=== PATIENT | male | born 1970 | race Hispanic/Latino ===

== ENCOUNTER 2019-10-14 15:06 | Inpatient (IN) | payer OTHER, SELFPAY ==
[2019-10-14 15:52] LABS: #Basophils 0.1 thou/uL (0.0-0.2); #Eosinphils 0.4 thou/uL (0.0-0.7); #Lymphocytes 1.3 thou/uL (1.20-3.40); #Monocytes 0.4 thou/uL (0.11-0.59); #Neutrophils 7.5 thou/uL (1.40-6.50); %Basophils 1.4 % (0.0-1.0); %Eosinophils 3.9 % (0.0-10.0); %Lymphocytes 13.2 % (21.0-51.0); %Monocytes 4.1 % (0.0-10.0); %Neutrophils 77.5 % (42.0-75.0); Hemoglobin 8.1 g/dL (14.0-18.0); Mean Corpuscular HGB CONC 33.6 g/dL (32.0-36.0); Mean Corpuscular Hemoglobin 33.2 pg (27.0-31.0); Mean Corpuscular Volume 98.8 fL (78.0-98.0); Mean Platelet Volume 7.3 fL (7.4-10.4); Platelet Count 251 thou/uL (130-400); RBC Distribution Width 12.3 % (11.5-14.5); Red Blood Cell (RBC) Count 2.43 mill/uL (4.70-6.10); White Blood Cell (WBC) Count 9.6 thou/uL (4.8-10.8)
[2019-10-14] MEDS ORDERED: Morphine 4 MG/ML VIAL ONE (15:53)
[2019-10-14] MEDS ORDERED: Lidocaine Viscous Sol 2% 15 ml UD Cup ONE (15:53)
[2019-10-14] MEDS ORDERED: Ondansetron PF 4 MG/2 ML Vial ONE (15:53)
[2019-10-14] MEDS ORDERED: Milk Of Magnesia 30 ML UDCUP ONE (15:53)
[2019-10-14 16:11] LABS: ALT (SGPT) 79 U/L (8-55); AST (SGOT) 141 U/L (5-34); Albumin 3.6 g/dL (3.5-5.0); Alkaline Phosphatase 147 U/L (40-110); Anion Gap 24 mmol/L (10-20); BUN (Urea Nitrogen) 80 mg/dL (8.9-20.6); Bilirubin, Total 0.4 mg/dL (0.2-1.2); Calc. Creatinine Clearance 0 mL/min (70-130); Calcium 7.6 mg/dL (7.8-10.44); Carbon Dioxide 20 mmol/L (22-29); Chloride 100 mmol/L (98-107); Estimated GFR-MDRD 6; Globulin 3.2 g/dL (2.4-3.5); Glucose 138 mg/dL (70-105); Potassium 3.9 mmol/L (3.5-5.1); Protein, Total 6.8 g/dL (6.0-8.3); Sodium 140 mmol/L (136-145)
[2019-10-14] MEDS ORDERED: Lorazepam 2 MG/ML VIAL ONE (16:24)
[2019-10-14] MEDS ORDERED: Cefepime 2 GM VIAL ONE (16:24)
--- NOTE | 2019-10-14 16:26 | RAD ---
Chest one view HISTORY: Dyspnea. FINDINGS: No comparison. Cardiac silhouette is magnified by projection. Pulmonary vasculature upper l imits of normal. Prominent ill-defined groundglass parenchymal opacities project over the central aspect of the left l chester and throughout the right lung. They are not especially peripheral based on the frontal radiograph. Slight elevation right hemidiaphragm. No lobar consolidation or evidence of pneumothorax. Tiny metallic density projects over the left shoulder. long wall mining machine helper leads overlie the chest. IMPRESSION : Prominent patchy groundglass parenchymal bilateral infiltrates. Clinical correlation regarding other signs and symptoms of multifocal viral pneumonitis is required.
[2019-10-14] MEDS ORDERED: Albuterol 200 PUFF (6.7GM INHALER) ONE (16:27)
[2019-10-14 16:35] LABS: CKMB 4.8 ng/mL (0-6.6)
[2019-10-14] MEDS ORDERED: Aspirin Chewable 81 MG TAB ONE ×2 (17:04→18:46)
--- NOTE | 2019-10-14 17:17 | CT ---
CT chest noncontrast CT abdomen and pelvis noncontrast HISTORY: Dyspnea. COVID 19. Flank pain. FINDINGS: Moderate right and small left pleural effusions. There are prominent ill-defined patchy are as of groundglass parenchymal opacity throughout each lung. Predominantly central. No lobar consolidation or evidence of pneumothorax. Old fractures involve the lateral aspect of left ribs 4 and 9. Lack of contrast limits evaluation of the soft tissues. Nonspecific lymph nodes are scattered about t he mediastinum. Each renal collecting system, ureter, and urinary bladder are decompressed without stone evident. Sma ll area of dystrophic calcifications associated with the tented area of the urinary bladder dome, possibly related to a urachal remnant. No evidence of complication. Lack of contrast limits evaluation of the soft tissues. Solid organs are intact. Motion artifact obsc ures detail. Nonspecific lymph nodes are scattered about the retroperitoneum. No evidence of bowel obstruction or inflammation. There are degenerative changes throughout the lumbar spine. IMPRESSION : Extensive bilateral airspace disease. Appearance is somewhat consistent with COVID 19, although the c entral location of the infiltrates and a significant amount of bilateral pleural fluid are not typical. No CT evidence of urinary tract obstruction or calcification. Incidental chronic-type findings as detailed above.
[2019-10-14 19:08] LABS: Troponin I 0.069 ng/mL (< 0.028)
[2019-10-14] MEDS ORDERED: Bisacodyl 5 MG TAB PO PRN (19:58)
[2019-10-14] MEDS ORDERED: Acetaminophen 325 MG Suppository PR PRN (19:58)
[2019-10-14] MEDS ORDERED: Mag-Al 1200 mg/1200 mg/30 ML UDCUP PO PRN (19:58)
--- NOTE | 2019-10-14 19:58 | PDOC.HHP ---
Hospitalist HPI - History of Present Illness fever History of Present Illness: This is a 49 year old with PMH of gastritis, hypertension who presented to the ER with fever. When I interviewed patient, he stated that he felt fine and denied fevers, chills, shortness of breath or cough. Per nurse, patient had been having fevers, shortness of breath and dry cough for past 8 days. He also told the nurse that he was having shortness of breath worst with laying down and on exertion. He denied chest pain. The patient complained of a slight headache and nausea and proceeded to dry heave while in the room. He reports no abdominal pain, constipation or diarrhea. He reports no difficulty with urination. He states he has had no kidney problems to his knowledge. Patient reports history of hypertension and states he took medicine for it occasionally but is not sure which one. ED Course: WHen patient presented to the ER he had a blood pressure of 204/34, HR 114, RR 22, temp 98.7, oxygen saturation 98% on room air. CT chest/abdomen and pelvis showed bilateral infiltrates He was given 4 morphine, Gi cocktail, zofran, 2 gram cefepime, 2 mg ativan, levaquin, 30 cc bolus of IV fluids in ER, 1L normal saline and 324 mg aspirin. He was also tested for COVID 19 Hospitalist ROS - Review of Systems Constitutional: denies: fever, chills ENT: denies: ear pain, ear discharge Respiratory: reports: cough, shortness of breath Cardiovascular: reports: orthopnea. denies: chest pain, palpitations Gastrointestinal: reports: nausea. denies: vomiting, abdominal pain, diarrhea, constipation Genitourinary: denies: dysuria, frequency Hospitalist History - Past Medical History Other Medical History: Hypertension Gastritis - Past Surgical History Other Surgical History: None - Family History Other Family History: Unable to obtain - Social History Smoking Status: Unknown if ever smoked (Patient was unable to answer question) Alcohol: reports: Occassional - Exam General Appearance: NAD, awake alert Eye: PERRL, anicteric sclera ENT: normocephalic atraumatic, no oropharyngeal lesions Neck: supple, no JVD Heart: RRR, no murmur, no gallops, no rubs Respiratory - other findings: diminished breath sounds bilaterally Gastrointestinal: soft Gastrointestinal - other findings: abdomen distended slightly. Mild epigastric tenderness Extremities: no edema Hospitalist Results - Labs Result Diagrams: 10/14/19 15:33 10/14/19 15:33 Lab results: WBC 9.6 thou/uL (4.8-10.8) 10/14/19 15:33 Hgb 8.1 g/dL (14.0-18.0) L 10/14/19 15:33 Hct 24.0 % (42.0-52.0) L 10/14/19 15:33 MCV 98.8 fL (78.0-98.0) H 10/14/19 15:33 Plt Count 251 thou/uL (130-400) 10/14/19 15: Neutrophils % 77.5 % (42.0-75.0) H 10/14/19 15:33 Sodium 140 mmol/L (136-145) 10/14/19 15: Potassium 3.9 mmol/L (3.5-5.1) 10/14/19 15: Chloride 100 mmol/L (98-107) 10/14/19 15: Carbon Dioxide 20 mmol/L (22-29) L 10/14/19 15:33 BUN 80 mg/dL (8.9-20.6) H 10/14/19 15:33 Creatinine 9.53 mg/dL (0.7-1.3) H 10/14/19 15:33 Glucose 138 mg/dL (70-105) H 10/14/19 15:33 Lactic Acid 1.9 mmol/L (0.5-2.2) 10/14/19 15:33 Calcium 7.6 mg/dL (7.8-10.44) L 10/14/19 15:33 Total Bilirubin 0.4 mg/dL (0.2-1.2) 10/14/19 15:33 AST 141 U/L (5-34) H 10/14/19 15:33 ALT 79 U/L (8-55) H 10/14/19 15:33 Alkaline Phosphatase 147 U/L (40-110) H 10/14/19 15:33 CK-MB (CK-2) 4.8 ng/mL (0-6.6) 10/14/19 15:33 Troponin I 0.069 ng/mL (< 0.028) H 10/14/19 18:27 Serum Total Protein 6.8 g/dL (6.0-8.3) 10/14/19 15:33 Albumin 3.6 g/dL (3.5-5.0) 10/14/19 15:33 Lipase 21 U/L (8-78) 10/14/19 15:33 Hospitalist H&P A/P - Plan Plan: This is a 49 year old male with past medical history of hypertension, gastritis who presented to the ER with fever, shortness of breath and cough however was afebrile here and actually had significantly elevated blood pressure # Acute hypoxic respiratory failure likely secondary to heart failure vs pneumonia #Hypertensive emergency with pulmonary edema #Type II NSTEMI #Acute Kidney Injury - patient with BP > 200. He reports having HTN occasionally at home. Chest X ray showing bilateral infiltrates. CT chest showing bilateral pleural effusions. Will d/c fluids. Start lasix 80 mg IV q12 hour. Will check ECHO. Troponin elevated but downtrending - creatinine is up to 9, nephrology was consulted. Will obtain renal ultrasound. Insert antunez catheter - continue IV vanc and cefepime and levaquin for now for possible pneumonia. Blood cultures sent, sputum culture pending- - COVID 19 test pending #Transaminitis - AST 141, ALT 79, ALP 147. Possibly congestive hepatopathy - will trend tomorrow #Macrocytic anemia - HB 8, check B12/folate in am Dispo: admit to CCU Code status: full code for now, poor historian
[2019-10-14] MEDS ORDERED: Furosemide 40 MG/4 ML VIAL SLOW IVP SCH (20:00)
[2019-10-14] MEDS: Furosemide 100 MG/10 ML VIAL SLOW IVP SCH (20:28)
[2019-10-14] MEDS ORDERED: hydrALAZINE 20 MG/ML VIAL SLOW IVP PRN (20:31)
[2019-10-14] MEDS: Ondansetron PF 4 MG/2 ML Vial IVP PRN (20:34)
[2019-10-14] MEDS: Labetalol HCl 100 MG/20 ML VIAL SLOW IVP PRN (20:45)
[2019-10-14] MEDS: Famotidine/PF 20 mg/2ml Vial SLOW IVP SCH (20:49)
[2019-10-14] MEDS: Vancomycin 1 GM in Premix Bag 1 BAG IVPB SCH (20:49)
[2019-10-14 20:59] LABS: Bacteria/HPF Rare-Few HPF (None Seen); RBC/HPF 0-3 HPF (0-3); Squamous Epithelial 0-3 HPF (0-3); WBC/HPF 0-3 HPF (0-3)
[2019-10-14] MEDS ORDERED: Vancomycin 1 GM in Premix Bag 1 BAG IVPB SCH (21:00)
[2019-10-14 22:01] LABS: Troponin I 0.057 ng/mL (< 0.028)
[2019-10-15] MEDS: Ondansetron PF 4 MG/2 ML Vial IVP PRN (03:21)
[2019-10-15] MEDS ORDERED: Cefepime 2 GM in Sodium Chloride 0.9% 100 ML IVPB SCH (04:00)
[2019-10-15 05:06] LABS: Hemoglobin 7.2 g/dL (14.0-18.0); Mean Corpuscular HGB CONC 33.1 g/dL (32.0-36.0); Mean Corpuscular Volume 99.8 fL (78.0-98.0); Mean Platelet Volume 7.8 fL (7.4-10.4); Platelet Count 207 thou/uL (130-400); RBC Distribution Width 12.4 % (11.5-14.5); Red Blood Cell (RBC) Count 2.17 mill/uL (4.70-6.10); White Blood Cell (WBC) Count 10.5 thou/uL (4.8-10.8)
[2019-10-15 05:13] LABS: ALT (SGPT) 82 U/L (8-55); AST (SGOT) 112 U/L (5-34); Albumin 3.3 g/dL (3.5-5.0); Alkaline Phosphatase 118 U/L (40-110); Anion Gap 24 mmol/L (10-20); BUN (Urea Nitrogen) 82 mg/dL (8.9-20.6); Bilirubin, Total 0.2 mg/dL (0.2-1.2); Calc. Creatinine Clearance 7 mL/min (70-130); Carbon Dioxide 16 mmol/L (22-29); Chloride 104 mmol/L (98-107); Estimated GFR-MDRD 6; Globulin 2.9 g/dL (2.4-3.5); Glucose 104 mg/dL (70-105); Potassium 4.5 mmol/L (3.5-5.1); Protein, Total 6.2 g/dL (6.0-8.3); Sodium 139 mmol/L (136-145)
[2019-10-15] MEDS: Furosemide 100 MG/10 ML VIAL SLOW IVP SCH (08:06)
[2019-10-15] MEDS: Vancomycin 1 GM in Premix Bag 1 BAG IVPB SCH (08:06)
[2019-10-15] MEDS: Famotidine/PF 20 mg/2ml Vial SLOW IVP SCH (08:06)
[2019-10-15] MEDS ORDERED: Lidocaine 1% (PF) 30 ML VIAL ONE (08:59)
[2019-10-15] MEDS ORDERED: Famotidine/PF 20 mg/2ml Vial SLOW IVP SCH (09:00)
[2019-10-15] MEDS ORDERED: Morphine 4 MG/ML VIAL ONE (09:24)
[2019-10-15] MEDS ORDERED: VANC IVPB PRN (09:50)
[2019-10-15] MEDS ORDERED: ANTIBIOTICS IVPB PRN (09:50)
--- NOTE | 2019-10-15 09:56 | CON ---
DATE OF CONSULTATION: HISTORY OF PRESENT ILLNESS: Barney Cm is a 49-year-old Greek gentleman, speaks no Tristanian. Extensive history is obtained with the help of an head scorer. Presents to the ER with several day history of shortness of breath, cough, and presumed fever. His coronavirus testing is present. He was in the ER last night October 13. His x-ray was consistent with pulmonary edema. CT showed airspace disease. PAST MEDICAL HISTORY: Pertinent for unknown medical problems. He denies any history of any diabetes or hypertension. PAST SURGICAL HISTORY: Apparently unknown. CARDIAC MEDICATION: Unknown. SOCIAL HISTORY: Alcohol, apparently he drinks two 40 ounces of beer a day. He has not had any alcohol for a period of time. REVIEW OF SYSTEMS: Otherwise unremarkable. PHYSICAL EXAMINATION: VITAL SIGNS: His saturations are 100% on nasal O2. Blood pressure is elevated at 160/90, pulse 80, respirations 18. CHEST: Decreased breath sounds without any wheezing or crackles. CARDIAC: Normal S1 and S2. No gallops. ABDOMEN: No masses. LABORATORY DATA: Creatinine 9, BUN is 82. BNP is 4458. Glucose 104. Hemoglobin and hematocrit are 7 and 21, and platelet count is normal. ASSESSMENT: 1. Fluid overload, congestive heart failure, and renal failure, etiology unclear. 2. Uncontrolled hypertension. 3. Greek-speaking patient. PLAN: Await results for the coronavirus. Nephrology was consulted. He is to undergo emergency dialysis. Echo is being ordered. He is already on broad-spectrum antibiotics. At this stage, continue supportive care and PT. We will follow in the ICU. Consultation note 70 minutes, 50% direct patient care. Job ID: [id number]
[2019-10-15] MEDS ORDERED: Vancomycin 1 GM in Premix Bag 1 BAG IVPB SCH (10:00)
[2019-10-15] MEDS ORDERED: Vancomycin HCl 750 MG in Sodium Chloride 0.9% 250 ML 250 ML IVPB SCH (10:00)
[2019-10-15] MEDS ORDERED: Vancomycin HCl 250 MG in Sodium Chloride 0.9% 100 ML IVPB SCH (10:00)
[2019-10-15] MEDS ORDERED: Vancomycin Sliding Scale 1 EACH FS ONE (10:00)
[2019-10-15] MEDS ORDERED: Prenatal Vitamin 1 TAB PO SCH (10:00)
[2019-10-15] MEDS ORDERED: Vancomycin HCl 500 MG in Sodium Chloride 0.9% 100 ML IVPB SCH (10:00)
[2019-10-15] MEDS ORDERED: HOLD VANCOMYCIN FOR LEVEL >20 FS SCH (10:00)
[2019-10-15 10:28] LABS: SARS-CoV-2 MS2 Positive; SARS-CoV-2 N Gene Negative; SARS-CoV-2 S Gene Negative; SARS-CoV-2 orf1ab Negative
--- NOTE | 2019-10-15 10:47 | CON ---
DATE OF CONSULTATION: HISTORY OF PRESENT ILLNESS: Mr. Cm is a 49-year-old male, non-Greenlandic speaking, and who presented to the ER for an elevated blood pressure as well as with fever. The patient states that he is mildly short of breath. He also has a fever. During the initial evaluation, chest x-ray showed diffuse interstitial infiltrates suggestive of a diffuse pneumonia. At the same time, he was noted to have a severely elevated potassium. We are being consulted for management of this chronic renal failure ?. Due to the unimproved renal function in the last 24 hours, I have decided to initiate hemodialysis. Right femoral dialysis catheter has been placed by Dr. Adkins. This morning, he is feeling a little better. REVIEW OF SYSTEMS: Positive for fever and mild shortness of breath. No chest pain. No syncopal episode. Positive for cough. No gross hematuria. No dysuria. No urinary frequency. No nausea. No vomiting. No abdominal pain. PAST MEDICAL HISTORY: Denies any medical problems. He does admit history of gastritis. PAST SURGICAL HISTORY: No significant surgeries. SOCIAL HISTORY: The patient is , lives in [place] for the last 20 years. He has 4 children. He currently does not smoke. He takes two beers per day. No IV drug abuse. No blood transfusion. Currently, not working. ALLERGIES: UNKNOWN. TRAUMA: None. IMMUNIZATION: Up-to-date. HOSPITALIZATIONS: Please see past medical history. FAMILY HISTORY: No family history of ESRD. PHYSICAL EXAMINATION: VITAL SIGNS: Blood pressure is noted at 160/99, heart rate 87, respiratory rate 16, and O2 saturation 100%. GENERAL: Noted to be awake, alert, comfortable, not in overt distress. SKIN: Adequate turgor. HEENT: He has a pale conjunctivae. Anicteric sclerae. NECK: No neck mass. No carotid bruits. No JVD. CHEST: No deformities. LUNGS: Decreased breath sounds. HEART: Normal sinus rhythm. No murmur. No gallops. No rubs. ABDOMEN: Globular, soft, and nontender. No masses. EXTREMITIES: No edema. No deformities. NEUROLOGIC: Awake and oriented to 3 spheres. Moving all extremities. No tremors. No asterixis. No ataxia. MEDICATIONS: Medications of October 15, 2019; 1. Cefepime 0.5 g IV daily. 2. Levaquin 500 mg every two days status post vancomycin. 3. P.R.N. hydralazine and labetalol. LABORATORY DATA: Laboratories of October 14, 2019, chest x-ray shows prominent ground-glass parenchymal bilateral infiltrates. Pulmonary vasculature is upper normal. CT scan of the abdomen and pelvis without contrast shows diffuse pulmonary infiltrates. No evidence of renal obstruction. Laboratories of October 15, 2019, white count 10.5 and hemoglobin 7.2. Sodium 139, potassium 4.5, chloride 104, carbon dioxide 16, BUN 82, creatinine 9.42, GFR 6 mL/minute, calcium 7, AST 112, ALT 82, and albumin 3.3. ASSESSMENT AND PLAN: 1. Chronic renal failure/acute kidney injury - we will review urine sediment. It is possible this is may be chronic in nature due to the associated anemia. CT scan of the abdomen and pelvis did not show any obstruction. We will probably do a renal ultrasound once he is ruled out for COVID. 2. Hypertension. Continue current BP medications. 3. Anemia. P.R.N. blood transfusion. We have prepared this patient for dialysis. A right femoral dialysis catheter has also already been inserted. We will do a 2-hour hemodialysis with this patient. We will recheck basic metabolic, CBC, PTH, and phosphorus in a.m. Job ID: [id number]
[2019-10-15 11:23] LABS: HBSAg Index 0.16 S/CO (0-0.99); Hep B Core Total Ab Non-Reactive (NonReactive); Hep B Core Total Index 0.03 S/CO (0-0.79); Hep B Surf AB Non-Reactive (NonReactive); Hep B Surf Ag Non-Reactive S/CO (NonReactive); Hep C IgG Ab Non-Reactive (NonReactive); Hep C Index 0.06 S/CO (0-0.79)
--- NOTE | 2019-10-15 11:48 | PDOC.HOSPP ---
- Subjective Encounter Date: 10/15/19 Encounter Time: 11:00 Subjective: The patient is doing much better. He has no orthopnea, mild cough. No abdominal pain, nausea or vomiting. He has abundant output in his antunez catheter - Objective Vital Signs & Weight: Vital Signs (12 hours) Temp Pulse Ox 10/15/19 08:00 99 10/15/19 03:00 97.8 F 10/15/19 02:09 98 Weight Weight 119 lb 14.903 oz Most Recent Monitor Data Heart Rate from ECG 91 NIBP 181/114 NIBP BP-Mean 136 Respiration from ECG 16 SpO2 99 I&O: 10/14/19 10/15/19 10/16/19 06:59 06:59 06:59 Intake Total 300 Output Total 1575 Balance -1275 Result Diagrams: 10/15/19 04:09 10/15/19 04:09 Hospitalist ROS - Review of Systems Constitutional: denies: fever, chills - Medication Medications: Active Medications Generic Name Dose Route Start Last Admin Trade Name Freq PRN Reason Stop Dose Admin Hydralazine HCl 10 mg 10/14/19 20:31 10/14/19 23:16 Apresoline SLOW IVP 10 mg Q1H PRN Administration SBP > 180 Labetalol HCl 10 mg 10/14/19 20:31 10/14/19 20:45 Normodyne SLOW IVP 10 mg Q4H PRN Administration SBP Greater Than 180 Ondansetron HCl 4 mg 10/14/19 19:58 10/15/19 03:21 Zofran IVP 4 mg Q6H PRN Administration Nausea/Vomiting - Exam General Appearance: NAD, awake alert Eye: PERRL, anicteric sclera ENT: normocephalic atraumatic, no oropharyngeal lesions Neck: no JVD Heart: RRR, no murmur, no gallops, no rubs Respiratory: CTAB, no wheezes, no ronchi Respiratory - other findings: left sided crackles Gastrointestinal: soft, non-tender, non-distended Extremities: no cyanosis, no clubbing, no edema Hosp A/P - Plan This is a 49 year old male with past medical history of hypertension, gastritis who presented to the ER with fever, shortness of breath and cough however was afebrile here and actually had significantly elevated blood pressure # Acute hypoxic respiratory failure likely secondary to heart failure vs pneumonia #Hypertensive emergency with pulmonary edema #Acute Kidney Injury - continue lasix 80 mg IV q12 hours. Nephrology was consulted, plan to undergo dialysis today since creatinine is still > 9. Renal US has been ordered - BP has improved to 180/116. Start oral antihypertensives after dialysis - continue IV vancomycin, cefepime, levaquin. Blood cultures negative. Can likely de-escalate pending how he does after dialysis - COVID 19 negative, will d/c precautions #Type II NSTEMI - troponins were elevated, but downtrending. ECHO is ordered. No chest pain #Transaminitis - improving, continue to trend - hepatitis panel negative #Macrocytic anemia - HB 7 - B12 normal, folate pending Dispo: pending improvement in creatinine, Blood pressure and respiratory failure DVT prophylaxis: SCD
[2019-10-15] MEDS: Labetalol HCl 100 MG/20 ML VIAL SLOW IVP PRN ×2 (11:52→16:06)
[2019-10-15] MEDS: Thiamine 100 MG TAB PO SCH (11:53)
--- NOTE | 2019-10-15 12:23 | OP ---
DATE OF PROCEDURE: 10/15/2019 PREOPERATIVE DIAGNOSIS: Acute renal failure. POSTOPERATIVE DIAGNOSIS: Acute renal failure. PROCEDURE PERFORMED: Placement of triple-lumen right femoral vein Trialysis catheter for hemodialysis. INDICATIONS FOR PROCEDURE: A 49-year-old man presented with acute renal failure. I was asked to place a temporary dialysis access for hemodialysis. DESCRIPTION OF PROCEDURE: Informed consent obtained from the patient. He was placed in supine position. The right groin was sterilely prepped and draped in the usual fashion. The right femoral artery was palpated at the groin. The skin medial to this was anesthetized with 1% lidocaine. The right femoral vein was cannulated with an 18-gauge introducer needle, returning dark venous blood. Guidewire was passed through the needle and advanced into the right femoral vein without resistance. Needle was withdrawn over the guidewire. A stab incision was made adjacent to the guidewire using an 11 scalpel. Dilator was passed over the guidewire, dilating the subcutaneous tissues. Dilator was removed. Triple-lumen Trialysis catheter was advanced over the guidewire and placed in the right femoral vein down to the hub. The guidewire was removed. Dark venous blood was aspirated from all 3 ports, which were individually flushed first with saline followed by heparin. The catheter was secured to right groin using 3-0 nylon suture at 2 points. Sterile dressings were applied. The patient tolerated this procedure without any apparent complication and remains hemodynamically stable following completion of procedure. Job ID: [id number]
[2019-10-15 12:34] LABS: Bilirubin Negative (Negative); Blood, Urine 2+ (Negative); Clarity Clear (Clear); Glucose, Urine (Dipstick) Normal (Negative); Leukocyte 75 Leu/uL (Negative); Nitrite Negative (Negative); Protein, Urine (Dipstick) 100 mg/dL (Neg-Trace); RBC/HPF 21-50 HPF (0-3); Squamous Epithelial None Seen HPF (0-3); Urobilinogen Normal mg/dL (Less than 2)
[2019-10-15 12:37] LABS: Bacteria/HPF 1+ HPF (None Seen)
--- NOTE | 2019-10-15 17:22 | ULT ---
RENAL ULTRASOUND: Date: 10-15-2019 Comparison: None History: Acute on chronic renal failure. Technique: Multiplanar grayscale sonographic imaging of the kidneys and urinary bladder obtained. FINDINGS: The right kidney is small and echogenic, measuring approximately 6.5 x 3.3 x 3.6 cm. Urinary bladder is decompressed and contains a Riley catheter. The left kidney is not well visualized secondary to increased echogenicity and patient body habitus. Left kidney measures approximately 6.3 x 3.3 x 3.6 cm. No hydronephrosis noted on either side. Incide ntal note is made of bilateral pleural effusions. IMPRESSION: 1. Small echogenic kidney suggesting renal medial disease. No hydronephrosis. 2. Bilateral pleural effusions. POS: CHARLEY
[2019-10-16] MEDS: Labetalol HCl 100 MG/20 ML VIAL SLOW IVP PRN (05:07)
[2019-10-16 05:23] LABS: #Basophils 0.1 thou/uL (0.0-0.2); #Eosinphils 0.9 thou/uL (0.0-0.7); #Monocytes 0.8 thou/uL (0.11-0.59); #Neutrophils 4.9 thou/uL (1.40-6.50); %Basophils 1.6 % (0.0-1.0); %Eosinophils 11.5 % (0.0-10.0); %Lymphocytes 12.6 % (21.0-51.0); %Monocytes 10.4 % (0.0-10.0); %Neutrophils 63.9 % (42.0-75.0); Hemoglobin 7.3 g/dL (14.0-18.0); Mean Corpuscular HGB CONC 33.9 g/dL (32.0-36.0); Mean Corpuscular Hemoglobin 33.7 pg (27.0-31.0); Mean Corpuscular Volume 99.3 fL (78.0-98.0); Mean Platelet Volume 7.7 fL (7.4-10.4); Platelet Count 217 thou/uL (130-400); RBC Distribution Width 12.3 % (11.5-14.5); Red Blood Cell (RBC) Count 2.18 mill/uL (4.70-6.10); White Blood Cell (WBC) Count 7.6 thou/uL (4.8-10.8)
[2019-10-16 05:44] LABS: Anion Gap 17 mmol/L (10-20); BUN (Urea Nitrogen) 54 mg/dL (8.9-20.6); Calc. Creatinine Clearance 9 mL/min (70-130); Calcium 8.2 mg/dL (7.8-10.44); Carbon Dioxide 25 mmol/L (22-29); Chloride 101 mmol/L (98-107); Estimated GFR-MDRD 8; Glucose 80 mg/dL (70-105); Phosphorus 5.4 mg/dL (2.3-4.7); Potassium 3.6 mmol/L (3.5-5.1); Sodium 139 mmol/L (136-145)
--- NOTE | 2019-10-16 08:51 | PRG ---
DATE OF SERVICE: 10/16/2019 SUBJECTIVE: This morning, the patient is awake, alert, and responsive. OBJECTIVE: VITAL SIGNS: Temperature 98, saturations 100%, blood pressure 180/110. CHEST: No wheezing or crackles. CARDIAC: Normal S1, S2. No gallops. ABDOMEN: No masses. IMPRESSION: Congestive heart failure, respiratory failure, renal failure. PLAN: Appears to be much improved. He has an access placed in for an emergency dialysis. He has acute renal failure. Input from Renal. We will follow while in the MICU. Job ID: [id number]
[2019-10-16] MEDS: Prenatal Vitamin 1 TAB PO SCH (09:07)
[2019-10-16] MEDS: Famotidine/PF 20 mg/2ml Vial SLOW IVP SCH (09:07)
[2019-10-16] MEDS: Thiamine 100 MG TAB PO SCH (09:08)
[2019-10-16] MEDS ORDERED: Tuberculin PPD 0.1 ML VIAL I-DERMAL SCH (09:45)
--- NOTE | 2019-10-16 10:22 | PRG ---
DATE OF SERVICE: 10/16/2019 SERVICE: Renal Medicine. SUBJECTIVE: Mr. Cm is a 49-year-old male, who was initially admitted for shortness of breath. At that time, there was a suspicion that he may have a pneumonia. However over time, the patient has been improving with initiation of dialysis. He was noted to be hyperkalemic and in volume overload at that time. He is tolerating the said dialysis. He is currently undergoing hemodialysis. No other complaints today. He denies any chest pain, shortness of breath, or any fever. OBJECTIVE: VITAL SIGNS: Blood pressure 183/110, heart rate 77, respiratory rate 10, O2 saturation 100% on room air, and temperature 98. GENERAL: Awake, alert, comfortable, not in overt distress. SKIN: Adequate turgor. HEENT: He has pale conjunctivae. Anicteric sclerae. NECK: No neck mass. No carotid bruits. No JVD. CHEST: No deformities. LUNGS: Decreased breath sounds. HEART: Normal sinus rhythm. No murmur. No gallops. No rubs. ABDOMEN: Globular, soft, and nontender. No masses. EXTREMITIES: No edema. No deformities. MEDICATIONS: Medications of October 16, 2019, were reviewed. LABORATORY DATA: Laboratories of October 16, 2019; white count 7.6, hemoglobin 7.3. Sodium 139, potassium 3.6, chloride 101, carbon dioxide 25, BUN 54, creatinine 7.5, and phosphorus 5.4. PTH 532. ASSESSMENT AND PLAN: 1. Chronic renal failure/acute kidney injury - renal ultrasound was done, which showed small echogenic kidneys suggesting there is chronicity of this renal dysfunction. I feel that this patient may have reached end-stage renal disease. Our plan is to continue maintenance hemodialysis. We will offer him with peritoneal dialysis if he will agree with it and if he will qualify. We will refer him for an option visit. Continue hemodialysis for the next several days and place him on 3 times a week. 2. Shortness of breath/congestive heart failure - clinically much improved. Please note, this patient ruled out for COVID. Repeat chest x-ray was done today on this patient. I have also ordered an JULIA and ANCA due to the proteinuria and hematuria to rule out vasculitis. Agree with current management. Job ID: [id number]
[2019-10-16] MEDS ORDERED: Carvedilol 6.25 MG TAB PO SCH (11:00)
[2019-10-16] MEDS: Calcium Carbonate 500 MG ChewTAB PO SCH ×2 (12:07→17:26)
--- NOTE | 2019-10-16 13:32 | RAD ---
CHEST 1 VIEW: HISTORY: congestive heart failure. COMPARISON: 10/14/2019. FINDINGS: Considerable improvement in the previously noted diffuse bilateral primarily perihilar parenchymal ch laurel, evidence for resolving or improving edema. No significant pleural effusion. Borderline cardio megaly. IMPRESSION: Marked improvement in the previously noted bilateral interstitial and alveolar primarily perihilar ed redd. Continued short-term followup. POS: C
[2019-10-16 13:40] VITALS: BMI 19.3
--- NOTE | 2019-10-16 14:48 | PDOC.HOSPP ---
- Subjective Encounter Date: 10/16/19 Encounter Time: 13:00 Subjective: The patient has no complains. No SOB, cough, fevers, chills. HE states he has no insurance. He has not seen PCP in years. He did report orthopnea on admission which has now resolved. - Objective Vital Signs & Weight: Vital Signs (12 hours) Temp Pulse Pulse Pulse BP BP BP 10/16/19 12:07 164/94 H 10/16/19 11:12 98.3 F 10/16/19 11:08 90 87 161/82 H 175/99 H 10/16/19 08:00 10/16/19 07:19 98.0 F 10/16/19 05:07 86 179/114 H 10/16/19 03:30 97.4 F L Pulse Ox Pulse Ox Pulse Ox 10/16/19 12:07 10/16/19 11:12 10/16/19 11:08 100 100 10/16/19 08:00 100 10/16/19 07:19 10/16/19 05:07 10/16/19 03:30 Weight Weight 112 lb 11.2 oz Most Recent Monitor Data Heart Rate from ECG 76 NIBP 149/90 NIBP BP-Mean 109 Respiration from ECG 19 SpO2 100 I&O: 10/15/19 10/16/19 10/17/19 06:59 06:59 06:59 Intake Total 300 240 Output Total 1575 1550 Balance -1275 -1310 Result Diagrams: 10/16/19 03:50 10/16/19 03:50 Hospitalist ROS - Review of Systems Constitutional: denies: fever, chills - Medication Medications: Active Medications Generic Name Dose Route Start Last Admin Trade Name Freq PRN Reason Stop Dose Admin Calcium Carbonate 500 mg 10/16/19 12:00 10/16/19 12:07 Tums PO 500 mg TID-WM LV Administration Famotidine 20 mg 10/16/19 09:00 10/16/19 09:07 Pepcid SLOW IVP 20 mg 0900 LV Administration Hydralazine HCl 10 mg 10/14/19 20:31 10/14/19 23:16 Apresoline SLOW IVP 10 mg Q1H PRN Administration SBP > 180 Labetalol HCl 10 mg 10/14/19 20:31 10/16/19 05:07 Normodyne SLOW IVP 10 mg Q4H PRN Administration SBP Greater Than 180 Ondansetron HCl 4 mg 10/14/19 19:58 10/15/19 03:21 Zofran IVP 4 mg Q6H PRN Administration Nausea/Vomiting Multivit/Folic Acid/Iron 1 tab 10/16/19 09:00 10/16/19 09:07 Vitamin PO 10/21/19 09:01 1 tab DAILY LV Administration Thiamine HCl 100 mg 10/15/19 10:00 10/16/19 09:08 Thiamine PO 10/17/19 10:01 100 mg 1000 LV Administration - Exam General Appearance: NAD, awake alert Eye: PERRL, anicteric sclera ENT: normocephalic atraumatic, no oropharyngeal lesions Neck: no JVD Heart: RRR, no murmur, no gallops, no rubs Respiratory: CTAB, no wheezes, no rales, no ronchi Gastrointestinal: soft, non-tender, non-distended, normal bowel sounds Extremities: no cyanosis, no clubbing, no edema Skin: normal turgor, no lesions, no rashes Hosp A/P - Plan Chest X ray 10/15: mild pulmonary edema This is a 49 year old male with past medical history of hypertension, gastritis who presented to the ER with fever, shortness of breath and cough however was afebrile here and actually had significantly elevated blood pressure # Acute hypoxic respiratory failure likely secondary to heart failure vs less likely pneumonia #Hypertensive emergency with pulmonary edema #Newly diagnosed ESRD - patient improved with lasix 80 mg IV q12 hours. Patient is getting dialysis M , W, F - he has no insurance, will need case management to find outpatient dialysis arrangement. Nephrology is thinking about setting him up with peritoneal dialysis - blood pressure is in the 160's, will start coreg 6.25 mg bid - discontinue cefepime and vancomycin. Continue levaquin for now. BLood cultures negative. COVId 19 negative #Type II NSTEMI - troponins were elevated, but downtrending. ECHO is ordered and pending #Transaminitis - improving, continue to trend - hepatitis panel negative #Macrocytic anemia - HB 7 - B12 normal, folate pending Dispo: needs outpatient dialysis set up DVT prophylaxis: SCD
[2019-10-16 15:50] LABS: ANA Symphony (Qualitative) Negative (Negative); ANA Symphony (Quantitative) 0.2 Ratio (< 0.7 Negative); dsDNA IgG Antibody 0.5 IU/mL (<10 Negative)
[2019-10-16] MEDS ORDERED: Cefepime 0.5 GM in Sodium Chloride 0.9% 100 ML IVPB SCH (16:00)
[2019-10-16] MEDS: Carvedilol 6.25 MG TAB PO SCH (17:25)
[2019-10-16] MEDS ORDERED: Calcium Carbonate 500 MG ChewTAB PO SCH (21:00)
[2019-10-17 04:17] LABS: #Eosinphils 1.8 thou/uL (0.0-0.7); #Lymphocytes 1.3 thou/uL (1.20-3.40); #Monocytes 0.9 thou/uL (0.11-0.59); #Neutrophils 5.1 thou/uL (1.40-6.50); %Basophils 0.5 % (0.0-1.0); %Lymphocytes 13.7 % (21.0-51.0); %Monocytes 10.3 % (0.0-10.0); %Neutrophils 55.5 % (42.0-75.0); Mean Corpuscular HGB CONC 33.5 g/dL (32.0-36.0); Mean Corpuscular Volume 98.7 fL (78.0-98.0); Mean Platelet Volume 7.1 fL (7.4-10.4); Platelet Count 216 thou/uL (130-400); RBC Distribution Width 12.4 % (11.5-14.5); Red Blood Cell (RBC) Count 2.42 mill/uL (4.70-6.10); White Blood Cell (WBC) Count 9.2 thou/uL (4.8-10.8)
[2019-10-17 04:40] LABS: Anion Gap 15 mmol/L (10-20); BUN (Urea Nitrogen) 22 mg/dL (8.9-20.6); Calc. Creatinine Clearance 14 mL/min (70-130); Carbon Dioxide 27 mmol/L (22-29); Chloride 99 mmol/L (98-107); Estimated GFR-MDRD 13; Glucose 97 mg/dL (70-105); Potassium 3.5 mmol/L (3.5-5.1); Sodium 137 mmol/L (136-145)
--- NOTE | 2019-10-17 08:00 | RAD ---
SINGLE VIEW OF THE CHEST: Comparison: 10-16-2019 History: CHF, shortness of breath. FINDINGS: Single view of the chest shows a normal sized cardiomediastinal silhouette. The heart has improved in size. There is no evidence of consolidation, mass, or pleural effusion. IMPRESSION: No evidence of acute cardiopulmonary disease. POS: ZACHA
[2019-10-17] MEDS ORDERED: EPOETIN ALFA-EPBX (ESRD) 4,000 UNIT/ML VIAL SC SCH (08:45)
--- NOTE | 2019-10-17 08:49 | PRG ---
DATE OF SERVICE: 10/17/2019 SERVICE: Renal Medicine. SUBJECTIVE: Mr. Cm is a 49-year-old male, who was initially admitted for acute respiratory failure. Initially, the feeling was that he may have had pneumonia. However, repeat chest x-ray suggests that the pulmonary lesions have improved with the dialysis alone. This could all be CHF. Please note, he had a cardiac echo, which showed an EF of 40% to 45%. Due to the worsening renal function, he was placed on dialysis. I have tried to communicate with the patient, who is non-Jamaican speaking about the need for long-term dialysis. We will be getting in touch with the daughter to explain it to the father. No other complaints with this patient today. He feels better. OBJECTIVE: VITAL SIGNS: Blood pressure 181/111, heart rate 73, temperature 96.9, O2 saturation 100%. GENERAL: The patient is noted to be awake, alert, comfortable, not in distress. SKIN: Adequate turgor. HEENT: Slightly pale conjunctivae. Anicteric sclerae. NECK: No neck mass. No carotid bruits. No JVD. CHEST: No deformities. LUNGS: Clear breath sounds. No wheezing. No crackles. HEART: Normal sinus rhythm. No murmur. No gallops. No rubs. ABDOMEN: Globular, soft, nontender. No masses. EXTREMITIES: No edema. No deformities. MEDICATIONS: Medications of October 17, 2019, reviewed. LABORATORY DATA: Laboratories of October 17, 2019; white count 9.2, hemoglobin 8. Sodium 137, potassium 3.5, chloride 99, carbon dioxide 27, BUN 22, creatinine 4.66, calcium 8.0. PTH is 532. ASSESSMENT AND PLAN: 1. Anemia. We will probably start the patient on Epogen as well as an iron supplementation. 2. Chronic renal failure-I suspect possibility of chronic glomerulonephritis. However, the kidneys are too small for him to undergo any renal biopsy. We are still awaiting the results of the JULIA and ANCA with this patient. Continue daily dialysis. Continue fluid removal. 3. Acute respiratory failure-consider underlying congestive heart failure. 4. Hypertension. Add losartan 25 mg tablet once a day. Agree with current management. Job ID: [id number]
--- NOTE | 2019-10-17 08:51 | PRG ---
DATE OF SERVICE: 10/17/2019 SUBJECTIVE: This morning, awake, alert, and responsive. He is in no respiratory distress. Chest x-ray was clear. His fluid overload symptoms resolved. OBJECTIVE: VITAL SIGNS: Temperature 99.8,, sats 100% on room air, and blood pressure 132\76. GENERAL: He is awake, alert, and responsive. CHEST: No wheezing or crackles. CARDIAC: Normal S1 and S2. No gallops. ABDOMEN: Soft. LABORATORY DATA: Creatinine 4.6. IMPRESSION: Acute on chronic renal failure, alcohol abuse, encephalopathy, respiratory much improved. PLAN: No need for any antibiotics at this stage. All cultures are negative. Home any time as per Nephrology. Job ID: [id number] [facility]
[2019-10-17] MEDS: Calcium Carbonate 500 MG ChewTAB PO SCH ×3 (09:00→16:49)
[2019-10-17] MEDS: Famotidine/PF 20 mg/2ml Vial SLOW IVP SCH (09:01)
[2019-10-17] MEDS: Carvedilol 6.25 MG TAB PO SCH ×2 (14:12→16:49)
[2019-10-17] MEDS: Calcitriol 0.25 MCG CAP PO SCH (14:53)
[2019-10-17] MEDS: Thiamine 100 MG TAB PO SCH (14:53)
[2019-10-17] MEDS: Losartan 25 MG TAB PO SCH (14:54)
[2019-10-17] MEDS: Prenatal Vitamin 1 TAB PO SCH (14:54)
--- NOTE | 2019-10-17 16:10 | PDOC.HOSPP ---
- Subjective Encounter Date: 10/17/19 Encounter Time: 11:30 Subjective: THe patient is doing well. He is getting dialysis today. No chest pain or shortness of breath or cough. Case management looking into dialysis set up for outpatient. He is undocumented. Nephrology will look into getting dialysis catheter placed. - Objective Vital Signs & Weight: Vital Signs (12 hours) Temp Pulse Ox 10/17/19 15:42 97.7 F 10/17/19 11:03 98.4 F 10/17/19 08:00 100 10/17/19 07:03 96.9 F L Weight Weight 111 lb 8.862 oz Most Recent Monitor Data Heart Rate from ECG 91 NIBP 133/85 NIBP BP-Mean 101 Respiration from ECG 21 SpO2 99 I&O: 10/16/19 10/17/19 10/18/19 06:59 06:59 06:59 Intake Total 240 340 Output Total 1550 750 Balance -1310 -410 Result Diagrams: 10/17/19 04:00 10/17/19 04:00 Hospitalist ROS - Review of Systems Constitutional: denies: fever, chills - Medication Medications: Active Medications Generic Name Dose Route Start Last Admin Trade Name Freq PRN Reason Stop Dose Admin Calcitriol 0.25 mcg 10/17/19 09:00 10/17/19 14:53 Rocaltrol PO 0.25 mcg DAILY LV Administration Calcium Carbonate 500 mg 10/16/19 12:00 10/17/19 14:30 Tums PO Not Given TID-WM LV Carvedilol 6.25 mg 10/16/19 17:00 10/17/19 14:12 Coreg PO Not Given BID-WM LV Epoetin Ned-epbx 7,500 unit 10/17/19 08:45 10/17/19 14:53 Retacrit SC 7,500 unit Q7D LV Administration Famotidine 20 mg 10/16/19 09:00 10/17/19 09:01 Pepcid SLOW IVP 20 mg 0900 LV Administration Hydralazine HCl 10 mg 10/14/19 20:31 10/14/19 23:16 Apresoline SLOW IVP 10 mg Q1H PRN Administration SBP > 180 Labetalol HCl 10 mg 10/14/19 20:31 10/16/19 05:07 Normodyne SLOW IVP 10 mg Q4H PRN Administration SBP Greater Than 180 Losartan Potassium 25 mg 10/17/19 09:00 10/17/19 14:54 Cozaar PO 25 mg DAILY LV Administration Ondansetron HCl 4 mg 10/14/19 19:58 10/15/19 03:21 Zofran IVP 4 mg Q6H PRN Administration Nausea/Vomiting Multivit/Folic Acid/Iron 1 tab 10/16/19 09:00 10/17/19 14:54 Vitamin PO 10/21/19 09:01 1 tab DAILY LV Administration Sodium Chloride 10 ml 10/16/19 21:00 10/17/19 09:03 Flush - Normal Saline IVF 10 ml Q12HR LV Administration Tuberculin PPD 0.1 ml 10/16/19 09:45 10/16/19 14:53 Tuberculin Ppd I-DERMAL 10/19/19 09:46 0.1 ml ONE LV Administration - Exam General Appearance: NAD, awake alert Eye: PERRL, anicteric sclera ENT: normocephalic atraumatic, no oropharyngeal lesions Neck: supple, no JVD Heart: RRR, no murmur, no gallops, no rubs Respiratory: CTAB, no wheezes, no rales, no ronchi Gastrointestinal: soft, non-tender, non-distended, normal bowel sounds Extremities: no cyanosis, no clubbing, no edema Skin: normal turgor, no lesions, no rashes Neurological: cranial nerve grossly intact, normal sensation to touch, no focal deficits, no new deficit Hosp A/P - Plan Chest X ray 10/15: mild pulmonary edema ECHO: EF 45-50%, moderate to severe TR This is a 49 year old male with past medical history of hypertension, gastritis who presented to the ER with fever, shortness of breath and cough however was afebrile here and actually had significantly elevated blood pressure # Acute hypoxic respiratory failure likely secondary to heart failure #Hypertensive emergency with pulmonary edema #Newly diagnosed ESRD #Systolic heart failure - patient improved with lasix 80 mg IV q12 hours. Patient is getting dialysis M , W, F - case management looking for outpatient dialysis option - per Dr. Coreas, will get surgery to place HD catheter for now - continue coreg 6.25 mg bid for hypertension - was on vanc, cefepime, levaquin empirically on admission. Vanc and cefepime discontinued 10/15, discontinued levaquin today low suspicion for pneumonia -COIVID 19 negative #Type II NSTEMI - troponins were elevated, but downtrending. ECHO showed no wall motion abnormalities #Transaminitis - improving, continue to trend. Repeat LFTS tomorrow - hepatitis panel negative #Macrocytic anemia - HB 7 - B12 high, folate normal Dispo: needs outpatient dialysis set up DVT prophylaxis: SCD
[2019-10-17] MEDS: Ferrous Sulfate 325 MG TAB PO SCH (16:49)
--- NOTE | 2019-10-17 19:23 | ULT ---
PREDIALYSIS ACCESS DUPLEX EXAMINATION: 10/17/19 INDICATION: End-stage renal disease for evaluation for dialysis access. FINDINGS: RIGHT UPPER EXTREMITY BRACHIAL ARTERY: 4.5 mm RADIAL ARTERY: 2.4 mm ULNAR ARTERY: 2.2 mm CEPHALIC VEIN Proximal Arm: 3.8 mm Mid Arm: 2.9 mm Distal Arm: 2.5 mm There is partial occlusive thrombus seen involving the right cephalic vein at the antecubital fossa. Measurements were not provided of the cephalic vein in the forearm and wrist. BASILIC VEIN Proximal Arm: 5.1 mm Mid Arm: 4.8 mm Distal Arm: 4.1 mm Antecubital Fossa: 3.6 mm Proximal Forearm: 1.6 mm Mid Forearm: 1.3 mm Distal Forearm: 1.9 mm LEFT UPPER EXTREMITY BRACHIAL ARTERY: 4.6 mm RADIAL ARTERY: 2.5 mm ULNAR ARTERY: 3.7 mm CEPHALIC VEIN Proximal Arm: 3.2 mm Mid Arm: 3.4 mm Distal Arm: 4.2 mm Antecubital Fossa: 4.4 mm Proximal Forearm: 2.5 mm Mid Forearm: 2.7 mm Distal Forearm: 2.5 mm BASILIC VEIN Proximal Arm: 4.7 mm Mid Arm: 4.5 mm Distal Arm: 5.8 mm Antecubital Fossa: 4.2 mm Proximal Forearm: 1.8 mm Mid Forearm: 1.1 mm Distal Forearm: 1.0 mm There is completely occlusive thrombus seen involving the left basilic vein at the left antecubital f paulina. The left basilic vein does branch at the antecubital fossa. One of the limbs is patent, more me dial to the occluded limb, within the left arm. IMPRESSION: 1. Venous thrombosis seen involving the right cephalic vein in the right antecubital fossa regio n. Proximal to this thrombus the right cephalic vein is patent. 2. 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 3. Predialysis access duplex measurements as above. POS: JESS
--- NOTE | 2019-10-18 01:02 | CON ---
DATE OF CONSULTATION: HISTORY OF PRESENT ILLNESS: A 49-year-old male, Frisian-speaking only from [facility]. He is here illegally. He was admitted to the hospital through the emergency room on 10/14/2019. Dr. Adkins, on 10/15/2019, placed a Trialysis catheter. When I entered the room, the patient has bilateral antecubital IVs, which I immediately removed. He is followed by Dr. Coreas. I have been asked to see him regarding establishing a dialysis access with hemodialysis catheter and a fistula. We will order ultrasound by mapping both arms. N.p.o. after midnight tonight. Plan placement of hemodialysis catheter cuff tunneled and [id number] arm fistula pinning and vein mapping and central line tomorrow to preserve his veins. The right groin catheter can be used for IV access. SOCIAL HISTORY: Tobacco; none. Alcohol; occasional beer. He is single, . MEDICATIONS: None. In the hospital, he is on carvedilol, hydralazine. He has been admitted to the Hospitalist Service and seen by Dr. Persaud and Dr. Coreas. PAST MEDICAL HISTORY: The patient does give a past medical history of gastritis, hypertension. He has been having headache, nausea, and dry heaves. He has a history of hypertension, but has not taken medications as he discontinued these on his own. He has had a CT scan of chest, abdomen, and pelvis noting bilateral infiltrates. PAST SURGICAL HISTORY: Noncontributory except for Trialysis catheter placed by Dr. Adkins. PHYSICAL EXAMINATION: VITAL SIGNS: 5 feet 4 inches, 111 pounds, 19 BMI, 97.7, 143/86. HEAD, EARS, EYES, NOSE, AND THROAT: Unremarkable. LUNGS: Clear to auscultation. CARDIAC: Regular rate and rhythm without murmur or gallop. ABDOMEN: Soft, nontender. EXTREMITIES: Palpable femoral, popliteal, radial pulses bilaterally. Antecubital IVs bilaterally removed. Right groin Trialysis catheter. LABORATORY DATA: Sodium 137, potassium 3.5, BUN 22, creatinine 4.66. GFR 13. White count 9 and hemoglobin 8. ASSESSMENT AND PLAN: End-stage renal disease, initiated dialysis this hospitalization. Bilateral ACs removed. Ultrasound vein mapping both arms stat. Plan n.p.o. after midnight tonight. Tentatively plan noon tomorrow hemodialysis access left arm fistula pinning, vein mapping, hemodialysis catheter. I had a long discussion with him regarding his illegal status. Once he is discharged, he should return to [facility]. The only other alternative is catastrophic dialysis periodically at this institution or others. Job ID: [id number]
[2019-10-18 05:05] LABS: Anion Gap 14 mmol/L (10-20); BUN (Urea Nitrogen) 13 mg/dL (8.9-20.6); Calc. Creatinine Clearance 16 mL/min (70-130); Calcium 8.1 mg/dL (7.8-10.44); Carbon Dioxide 28 mmol/L (22-29); Chloride 97 mmol/L (98-107); Estimated GFR-MDRD 16; Glucose 106 mg/dL (70-105); Potassium 3.7 mmol/L (3.5-5.1); Sodium 135 mmol/L (136-145)
[2019-10-18 05:06] LABS: ALT (SGPT) 43 U/L (8-55); AST (SGOT) 27 U/L (5-34); Albumin 3.1 g/dL (3.5-5.0); Alkaline Phosphatase 103 U/L (40-110); Bilirubin, Direct 0.1 mg/dL (0.1-0.3); Bilirubin, Total Less than 0.2 mg/dL (0.2-1.2); Protein, Total 6.2 g/dL (6.0-8.3)
[2019-10-18 05:49] LABS: Hemoglobin 8.6 g/dL (14.0-18.0); Mean Corpuscular HGB CONC 34.2 g/dL (32.0-36.0); Mean Corpuscular Hemoglobin 33.4 pg (27.0-31.0); Mean Corpuscular Volume 97.8 fL (78.0-98.0); Mean Platelet Volume 6.9 fL (7.4-10.4); Platelet Count 221 thou/uL (130-400); Red Blood Cell (RBC) Count 2.58 mill/uL (4.70-6.10)
[2019-10-18 05:57] LABS: Band 8 % (5-11); Eosinophils 23 % (0-10); Lymphocytes 24 % (21-51); MDiff Complete? YES; Monocytes 8 % (0-10); Neutrophil 37 % (42-75)
[2019-10-18] MEDS: Carvedilol 6.25 MG TAB PO SCH ×2 (06:20→19:51)
--- NOTE | 2019-10-18 08:58 | PRG ---
DATE OF SERVICE: 10/18/2019 SUBJECTIVE: Mr. Cm is a 49-year-old male, who was admitted for a volume overload and chronic renal failure. He underwent emergent hemodialysis. He is breathing better. His CHF is much resolved. Surgical consult has been done with Dr. Guerin for placement of AV fistula as well as cuffed hemodialysis catheter. The patient voices no new complaints today. The patient was also ruled out for COVID. OBJECTIVE: VITAL SIGNS: Blood pressure is 166/96, heart rate 71, respiratory rate 14, and O2 saturation 100%. GENERAL: The patient is awake, alert, comfortable, not in distress. SKIN: Adequate turgor. HEENT: He has a slightly pale conjunctivae. Anicteric sclerae. NECK: No neck mass. No carotid bruits. No JVD. CHEST: No deformities. LUNGS: Clear breath sounds. No wheezing. No crackles. HEART: Normal sinus rhythm. No murmur. No gallops. No rubs. ABDOMEN: Globular, soft, and nontender. No masses. EXTREMITIES: No edema. No deformities. LABORATORY DATA: Laboratories of October 18, 2019, white count 8 and hemoglobin 8.6. Sodium 135, potassium 3.7, chloride 97, carbon dioxide 28, BUN 13, creatinine 3.93, glucose 106, and calcium 8.1. JULIA screen was negative. ANCA is pending. ASSESSMENT AND PLAN: 1. Chronic renal failure/end-stage renal disease stable, continuing current hemodialysis regimen. We will do another hemodialysis treatment with this patient. My concern is that the patient may not qualify for outpatient hemodialysis. I have consulted Surgery for placement of arteriovenous fistula and cuffed hemodialysis catheter. 2. Congestive heart failure, clinically much improved with fluid removal with dialysis. 3. Anemia, currently on Epogen regimen as well as ferrous sulfate. 4. Secondary hyperparathyroidism/hyperphosphatemia - the patient started on calcitriol and Tums. Job ID: [id number]
[2019-10-18] MEDS ORDERED: Fentanyl 100 MCG/2 ML VIAL ONE (10:42)
[2019-10-18] MEDS ORDERED: Famotidine/PF 20 mg/2ml Vial ONE (10:43)
[2019-10-18] MEDS ORDERED: Bupivacaine PF 0.5% 30 ML VIAL ONE (10:49)
[2019-10-18] MEDS ORDERED: Sodium Chloride 0.9% 10 ML ONE ×2 (10:49→13:10)
[2019-10-18] MEDS ORDERED: Heparin 10,000 UNITS/1 ML VIAL ONE (10:49)
[2019-10-18] MEDS ORDERED: Lidocaine 2% w/Epinephrine 1:200K 20 ML VIAL ONE (10:49)
[2019-10-18] MEDS ORDERED: Heparin 5,000 UNITS/ML VIAL ONE (10:49)
--- NOTE | 2019-10-18 11:03 | PRG ---
DATE OF SERVICE: 10/18/2019 SUBJECTIVE: Rodrick Cm is a 49-year-old gentleman, awake, alert, and responsive. OBJECTIVE: VITAL SIGNS: Temperature 97, saturations are 90% on room air, blood pressure 166/95, respiratory rate 18. GENERAL: No distress. CHEST: No wheezing, crackles. CARDIAC: Normal S1, S2. No gallops. ASSESSMENT: Respiratory failure, congestive heart failure, renal failure, hypertension. PLAN: Access placement today, eventually home. Job ID: [id number]
[2019-10-18] MEDS ORDERED: Lidocaine 1% PF 5 ML VIAL ONE ×2 (11:05→12:49)
[2019-10-18] MEDS ORDERED: PROPOFOL 0 ML ONE (11:07)
[2019-10-18] MEDS ORDERED: Propofol 500 MG/50 ML VIAL ONE (11:07)
[2019-10-18] MEDS ORDERED: hydrALAZINE 20 MG/ML VIAL ONE (11:17)
[2019-10-18] MEDS ORDERED: PHENYLEPHRINE-NS 100 MCG/ML 10 ML SYRINGE ONE ×2 (12:49→13:10)
[2019-10-18] MEDS ORDERED: Metoclopramide HCl 10 MG/2 ML VIAL ONE (12:49)
[2019-10-18] MEDS ORDERED: Succinylcholine Chloride 20 MG/ML 10 ml SYRINGE FS ONE (12:49)
[2019-10-18] MEDS ORDERED: Glycopyrrolate 0.2 MG/ML 5 ML SYRINGE ONE (12:49)
[2019-10-18] MEDS ORDERED: Bupivacaine HCl 0.5%/Epinephrine 1:200,000/PF 30 ml Vial ONE (12:49)
[2019-10-18] MEDS ORDERED: Ondansetron PF 4 MG/2 ML Vial ONE (12:49)
[2019-10-18] MEDS ORDERED: EPHEDRINE 25 MG/5 ML SYRINGE ONE (12:49)
[2019-10-18] MEDS ORDERED: Rocuronium Bromide 10 MG/ML (10ML VIAL) ONE (12:49)
[2019-10-18] MEDS ORDERED: PROPOFOL 200 MG/20 ML VIAL ONE (12:49)
[2019-10-18] MEDS ORDERED: Protamine Sulfate 50 MG/5 ML VIAL ONE (14:17)
[2019-10-18] MEDS ORDERED: Promethazine HCl 25 MG/ML VIAL IM PRN (14:21)
[2019-10-18] MEDS ORDERED: Ondansetron HCl/PF 4 MG/2 ML Vial IVP PRN (14:21)
[2019-10-18] MEDS ORDERED: Promethazine HCl 25 MG/ML VIAL SLOW IVP PRN (14:21)
[2019-10-18] MEDS: Ferrous Sulfate 325 MG TAB PO SCH ×2 (14:43→19:51)
[2019-10-18] MEDS: Calcitriol 0.25 MCG CAP PO SCH (14:43)
[2019-10-18] MEDS: Famotidine/PF 20 mg/2ml Vial SLOW IVP SCH (14:43)
[2019-10-18] MEDS: Calcium Carbonate 500 MG ChewTAB PO SCH ×3 (14:43→19:51)
[2019-10-18] MEDS: Losartan 25 MG TAB PO SCH (14:43)
[2019-10-18] MEDS: Prenatal Vitamin 1 TAB PO SCH (14:44)
[2019-10-18] MEDS ORDERED: Acetaminophen 500 MG TAB PO PRN (14:54)
[2019-10-18] MEDS ORDERED: traMADol HCl 50 MG TAB PO PRN (14:54)
[2019-10-18 15:14] LABS: Cytoplasmic (C-ANCA) <1:20 titer (Neg:<1:20); Myeloperoxidase AutoAbs <9.0 U/mL (0.0-9.0); Perinuclear (P-ANCA) <1:20 titer (Neg:<1:20); Proteinase-3 AutoAbs Less than 3.5 U/mL (0.0-3.5)
--- NOTE | 2019-10-18 16:31 | PDOC.HOSPP ---
- Subjective Encounter Date: 10/18/19 Encounter Time: 16:29 Subjective: THe patient is doing well, getting dialysis currently. HE denies shortness of breath, chest pain, cough. He got his access today, patient states he is unable to move his right arm. Per surgery, patient's right arm was blocked on accident due to some miscommunication that occurred in pacu. Nephrology prefers dc tomorrow - Objective Vital Signs & Weight: Vital Signs (12 hours) Temp BP Pulse Ox 10/18/19 11:22 97.6 F 10/18/19 08:00 99 10/18/19 07:43 99 10/18/19 07:08 97.6 F 10/18/19 06:20 166/96 H Weight Weight 102 lb 8.239 oz Most Recent Monitor Data Heart Rate from ECG 69 NIBP 172/101 NIBP BP-Mean 124 Respiration from ECG 16 SpO2 98 I&O: 10/17/19 10/18/19 10/19/19 06:59 06:59 06:59 Intake Total 340 610 Output Total 750 450 Balance -410 160 Result Diagrams: 10/18/19 04:30 10/18/19 04:30 Hospitalist ROS - Review of Systems Constitutional: denies: fever, chills - Medication Medications: Active Medications Generic Name Dose Route Start Last Admin Trade Name Ritchieq PRN Reason Stop Dose Admin Calcitriol 0.25 mcg 10/17/19 09:00 10/18/19 14:43 Rocaltrol PO Not Given DAILY [facility] Calcium Carbonate 500 mg 10/16/19 12:00 10/18/19 14:44 Tums PO Not Given TID-WM LV Carvedilol 6.25 mg 10/16/19 17:00 10/18/19 06:20 Coreg PO 6.25 mg BID-WM LV Administration Epoetin Ned-epbx 7,500 unit 10/17/19 08:45 10/17/19 14:53 Retacrit SC 7,500 unit Q7D LV Administration Famotidine 20 mg 10/16/19 09:00 10/18/19 14:43 Pepcid SLOW IVP Not Given 0900 LV Ferrous Sulfate 325 mg 10/17/19 17:00 10/18/19 14:43 Feosol PO Not Given BID-WM LV Hydralazine HCl 10 mg 10/14/19 20:31 10/14/19 23:16 Apresoline SLOW IVP 10 mg Q1H PRN Administration SBP > 180 Labetalol HCl 10 mg 10/14/19 20:31 10/16/19 05:07 Normodyne SLOW IVP 10 mg Q4H PRN Administration SBP Greater Than 180 Losartan Potassium 25 mg 10/17/19 09:00 10/18/19 14:43 Cozaar PO Not Given DAILY LV Ondansetron HCl 4 mg 10/14/19 19:58 10/15/19 03:21 Zofran IVP 4 mg Q6H PRN Administration Nausea/Vomiting Multivit/Folic Acid/Iron 1 tab 10/16/19 09:00 10/18/19 14:44 Vitamin PO 10/21/19 09:01 Not Given DAILY LV Sodium Chloride 10 ml 10/16/19 21:00 10/18/19 09:00 Flush - Normal Saline IVF 10 ml Q12HR LV Administration Tuberculin PPD 0.1 ml 10/16/19 09:45 10/16/19 14:53 Tuberculin Ppd I-DERMAL 10/19/19 09:46 0.1 ml ONE LV Administration - Exam General Appearance: NAD, awake alert Eye: PERRL, anicteric sclera ENT: normocephalic atraumatic, no oropharyngeal lesions Neck: no JVD Heart: RRR, no murmur, no gallops, no rubs Respiratory: CTAB, no wheezes, no rales, no ronchi Gastrointestinal: soft, non-tender, non-distended Extremities: no cyanosis Extremities - other findings: patient unable to lift up right arm Skin: normal turgor, no lesions, no rashes Neurological: cranial nerve grossly intact, normal sensation to touch, no focal deficits, no new deficit Hosp A/P - Plan Chest X ray 10/15: mild pulmonary edema ECHO: EF 45-50%, moderate to severe TR This is a 49 year old male with past medical history of hypertension, gastritis who presented to the ER with fever, shortness of breath and cough however was afebrile here and actually had significantly elevated blood pressure # Acute hypoxic respiratory failure likely secondary to systolic heart failure #Newly diagnosed ESRD #Systolic heart failure - Patient is getting dialysis M, W, F. He had HD catheter placed today, has left arm AV fistula - right arm is currently numb from nerve block - case management consulted, unable to set up outpatient dialysis due to patient 's illegal status - plan to d/c tomorrow #Hypertensive emergency with pulmonary edema -improved with lasix - continue coreg 6.25 mg bid for hypertension - was on vanc, cefepime, levaquin empirically on admission. Vanc and cefepime discontinued 10/15, discontinued levaquin today low suspicion for pneumonia -COIVID 19 negative #Type II NSTEMI - troponins were elevated, but downtrending. ECHO showed no wall motion abnormalities #Transaminitis -resolved - hepatitis panel negative #Macrocytic anemia - HB 7 - B12 high, folate normal Dispo: needs outpatient dialysis set up DVT prophylaxis: SCD
--- NOTE | 2019-10-18 20:15 | RAD ---
Chest AP view INDICATION: Evaluate central line placement COMPARISON: October 17, 2019 chest radiograph FINDINGS: Lungs: Hyperinflated but clear Cardiac silhouette: Mildly enlarged but stable Pulmonary vasculature: Normal Pleural spaces: No pleural effusion or pneumothorax is demonstrated. Upper abdomen: No abnormality seen. Osseous structures: No acute osseous abnormality. Additional findings: There is a new right IJ dialysis catheter with the tip projecting in the region of the right atrium. There is a new left IJ central venous catheter with the tip projecting in the region of the right atrium. IMPRESSION: New central venous catheters as above. Stable mild cardiomegaly.
--- NOTE | 2019-10-18 20:56 | OP ---
DATE OF PROCEDURE: 10/18/2019 PREOPERATIVE DIAGNOSES: End-stage renal disease, thrombosed antecubital vein, right arm from IV access antecubital in the ER and present until I saw him yesterday. Thrombosed basilic vein, left arm for IV access antecubital area placed in the ER and present since admission until I saw him yesterday. PROCEDURES PERFORMED: Right internal jugular cuff tunneled hemodialysis catheter [employer] pre-curved. Left internal jugular central line, left wrist Michelle fistula calibrated to a 3.5 mm coronary dilator, clipping of collateral. ANESTHESIA: General (right arm was blocked, but left arm fistula performed). DESCRIPTION OF PROCEDURE: The patient was taken to the operating room, where under general anesthesia, neck and chest, left upper extremity prepared with ChloraPrep and draped in routine fashion. Local anesthetic was infiltrated in the skin and subcutaneous tissue about the operative site. 0.5% Marcaine with epinephrine 30 mL mixed with 1% Xylocaine with epinephrine 20 mL used mixture. Ultrasound guidance used to cannulate both the right and left internal jugular veins, trocar catheters and J-wires threaded, trocar catheter removed. Skin site was enlarged sharply. Left IJ triple-lumen catheter placed under Seldinger technique removing the J-wire, securing the catheter with 3-0 nylon suture and sterile dressing was applied. Each port aspirated blood flushed with saline solution. On the right side, a stab incision was made with the right chest. Using a tunneling device, pre-curved Angio[employer] cuffed tunneled hemodialysis catheter tunneled between 2 incisions, placed a fabric cuff in the skin exit site. Catheter was secured with 2 interrupted sutures of 3-0 nylon. Dilator smaller and medium placed over the J-wire into the internal jugular vein, removed. Dilator and Peel-Away Sheath placed over the J-wire into the superior vena cava and dilator and J-wire were removed. Catheter placed with a Peel-Away sheath and Peel-Away sheath removed. Platysma approximated with 4-0 Monocryl, skin with subdermal 4-0 Monocryl and Tenaha glue applied. Each port aspirated of blood, flushed with saline solution and hepatitis saline solution 1000 units of heparin per mL, indicating volume of the port. Sterile dressing was applied. Final fluoroscopic images revealed good line placement. Attention was turned to the left arm. The patient had an IV in both antecubital veins placed in the ER and left in place until I saw him in consultation yesterday (for 2-3 days). Antecubital vein on the right was thrombosed. Basilic vein on the left antecubital area thrombosed. Incision was made in the left wrist longitudinally between radial artery and cephalic vein, both of which were dissected free. The patient was given 6000 units of heparin intravenously. The cephalic vein dissected free and ligated on the hand side with 3-0 silk ties and spatulated over branch point and interrogated passing coronary dilators from 2 mm to 3.5 mm coronary dilator. It was flushed with heparinized saline solution. Branches clipped. Radial artery dissected free is small, but of good quality and clamped proximally and distally. Longitudinal arteriotomy was made sharply, elongated with Mcgill scissors and vein accordingly spatulated. End vein to side radial artery anastomosis created with continuous suture of 6-0 Prolene. After completing the anastomosis, releasing the clamps, noted good Doppler signal in the cephalic vein outflow of forearm. Good hemostasis noted. The patient given 25 mg of protamine by anesthesia. Subcutaneous tissues were approximated with 3-0 Monocryl, skin with subdermal 4-0 Monocryl and Tenaha glue applied. Job ID: [id number]
[2019-10-19 07:47] VITALS: TEMP 98.5
[2019-10-19] MEDS: Prenatal Vitamin 1 TAB PO SCH (08:35)
[2019-10-19] MEDS: Calcium Carbonate 500 MG ChewTAB PO SCH ×3 (08:35→16:41)
[2019-10-19] MEDS: Carvedilol 6.25 MG TAB PO SCH ×2 (08:35→16:41)
[2019-10-19] MEDS: Ferrous Sulfate 325 MG TAB PO SCH ×2 (08:35→16:41)
[2019-10-19] MEDS: Losartan 25 MG TAB PO SCH (08:35)
[2019-10-19] MEDS: Famotidine/PF 20 mg/2ml Vial SLOW IVP SCH (08:35)
[2019-10-19] MEDS: Calcitriol 0.25 MCG CAP PO SCH (08:35)
[2019-10-19] MEDS ORDERED: traMADol HCl 50 MG TAB PO PRN (09:34)
--- NOTE | 2019-10-19 10:37 | PRG ---
DATE OF SERVICE: 10/19/2019 SUBJECTIVE: This morning, awake, alert, responsive. Access placed and x-ray normal. OBJECTIVE: VITAL SIGNS: Temperature 98, pulse 97, blood pressure 160/96, respirations 18. CHEST: No wheezing or crackles. CARDIAC: Normal S1 and S2. No gallops. ABDOMEN: No mass. IMPRESSION: 1. Chronic renal failure. 2. Hypertension. PLAN: He appears to be stable. Pulmonary lafleur, he can be discharged home any time. Follow up with Renal. Job ID: [id number]
[2019-10-19 11:11] LABS: Anion Gap 20 mmol/L (10-20); BUN (Urea Nitrogen) 16 mg/dL (8.9-20.6); Calc. Creatinine Clearance 14 mL/min (70-130); Calcium 8.4 mg/dL (7.8-10.44); Carbon Dioxide 24 mmol/L (22-29); Chloride 98 mmol/L (98-107); Estimated GFR-MDRD 16; Glucose 82 mg/dL (70-105); Iron 34 ug/dL (65-175); Iron 36 ug/dL (65-175); Iron Binding Capacity, Total 323 mcg/dL (261-462); Potassium 4.5 mmol/L (3.5-5.1); Sodium 137 mmol/L (136-145)
[2019-10-19 16:41] VITALS: BP 166/96
--- NOTE | 2019-10-19 17:32 | DIS ---
DATE OF ADMISSION: 10/14/2019 DATE OF DISCHARGE: 10/19/2019 DISCHARGE DIAGNOSES: 1. Acute hypoxic respiratory failure secondary to hypertensive emergency with pulmonary edema and acute systolic heart failure. 2. Possible pneumonia. 3. Type 2 non-ST segment elevation myocardial infarction. 4. Acute kidney injury with new diagnosis of end-stage renal disease. 5. Anemia with iron deficiency. CONSULTATIONS: Rafael Aldana MD with Nephrology, Luis Persaud MD with Critical Care, and Micah Guerin MD with General Surgery. BRIEF HISTORY OF PRESENT ILLNESS: This is a 49-year-old male with a past medical history of gastritis and hypertension, who presented to the emergency room with shortness of breath, cough, and fevers for the past eight days. The patient also reported orthopnea on exertion and while lying down. Upon presentation to the emergency room, he had a blood pressure of > 200 systolic, heart rate of 114. His CT scan of his chest and abdomen showed bilateral infiltrates. He was tested for COVID-19 in the ER, which was negative. He was given cefepime, Levaquin, IV fluids, and aspirin and was admitted for further workup. HOSPITAL COURSE: 1. Acute hypoxic respiratory failure secondary to acute systolic heart failure versus pneumonia/ Hypertensive emergency The patient was initially started on IV vancomycin, cefepime, and Levaquin. The patient's creatinine was noted to be 9.5 on presentation. He was initially started on IV Lasix 80 mg q.12. However , his blood pressure remained uncontrolled with this and continued to have persistent pulmonary edema. Nephrology was consulted and started him on dialysis on 10/14. Thereafter, the patient reported resolution of his shortness of breath. His blood cultures were negative. Antibiotics were discontinued on the . The patient was weaned off oxygen down to room air. His troponins were slightly elevated at 0.077, but downtrended to 0.057. Patient denied chest pain. ECHO showed an EF of 40% to 45 %, with moderate mitral regurgitation. He was discharged on lasix 20 mg daily prn and coreg 6.25 mg bid for hypertension. 2. Acute kidney injury with newly diagnosed ESRD: the patient had a creatinine of 9.3 on presentation. He was started on dialysis while in the hospital by Dr. Coreas. The patient had a right tunneled catheter placed on the October 17 and left arm fistula on 10/17. By mistake the patient's right arm was blocked by Anesthesia during the procedure, so the patient did have some numbness of his right arm which is improving on the day of discharge. There are some absorbable sutures on the left arm, which should dissolve on its own. He should follow up with Dr. Guerin in 3 weeks. We tried to set him up with outpatient dialysis. However, the patient is an illegal immigrant so he does not qualify. Therefore, he was advised on discharge to follow up with his PCP with repeat labs in a week. He should come to the emergency room if he feels shortness of breath, inability to urinate, or if this potassium levels are really high for dialysis. 4. Transaminitis: The patient did have elevated LFTs on admission, which resolved on discharge. He was tested for hepatitis, which came back normal. 5. Anemia: The patient had a hemoglobin of 8.6. His iron panel showed a ferritin of 135, iron saturation of 11. His B12 and folate levels were normal. He was discharged on iron supplementation. 6. Partial occlusive thrombus in the right cephalic vein: The patient was noted to have IVs bilaterally in both wrists. These were removed on the after noting of a partial occlusive thrombus. The patient does report some mild pain in his right arm and numbness. He was advised to apply warm compresses. DISCHARGE PHYSICAL EXAMINATION: VITAL SIGNS: Temperature 98.5, O2 sat 96^% on room air, blood pressure is 137/74, and heart rate is 97. GENERAL: The patient is oriented x3. CVS: Regular rate and rhythm with no murmurs, rubs, or gallops. LUNGS: Clear to auscultation bilaterally. ABDOMEN: Positive bowel sounds. Soft, nontender, and nondistended. EXTREMITIES: No edema. PERTINENT LABORATORY DATA: CBC 10/17: White count 8.0, hemoglobin 8.6, hematocrit 25.2, and platelet count of 221. BMP 10/18: Shows a creatinine of 4.09. Rest of BMP is normal. Iron panel: Ferritin 135, iron sat 11, TIBC 323, and iron level 34. LFTs 10/17: AST 27, ALT 43, and alkaline phosphatase 103. Troponin I: 0.077, 0.069, and 0.057. Vitamin B12: 804. Folate: 14. PTH: 532. UA 10/14: Shows 100 protein, 2+ blood, 75 leukocyte esterase, 21 to 50 rbc's, and 4 to 6 white blood cells. JULIA panel: Negative. ANCA, anti-myeloperoxidase, atypical p-ANCA, and irzc-bdggia-yoztubkj DNA:are negative. COVID PCR: Not detected. Hepatitis B panel :nonreactive. IMAGING: Echo 10/15: EF is 40% to 45% with moderate MR, sclerotic aortic valve. There is [id number] TR. Chest x-ray 10/13: Shows prominent patchy bilateral infiltrates. CT chest, abdomen, and pelvis: Shows extensive bilateral airspace disease. Renal ultrasound on 10/14: Shows small echogenic kidney suggesting medical renal disease. No hydronephrosis. Chest x-ray 10/15: Shows marked improvement in the previously noted bilateral interstitial and alveolar primarily perihilar edema. Chest x-ray 10/16: Shows no acute disease. Chest x-ray 10/17: Shows stable mild cardiomegaly. Marking ultrasound 10/16: Shows partial occlusive thrombus involving the right cephalic vein at the antecubital fossa. DISCHARGE CONDITION: Stable. ACTIVITY: As tolerated. DIET: A renal diet. DISCHARGE MEDICATIONS: 1. Calcitriol 0.25 mcg p.o. daily. 2. Tums 500 mg p.o. t.i.d. 3. Coreg 6.25 mg p.o. b.i.d. 4. Ferrous sulfate 325 mg p.o. b.i.d. 5. Furosemide 20 mg p.o. daily p.r.n. 6. Losartan 25 mg p.o. daily. DISCHARGE INSTRUCTIONS: The patient is to follow up with his PCP in 1 week. He should follow up with Dr. Guerin in his office in 3 weeks. He should exercise and use his right arm without any restrictions. He should get repeat blood work done with his primary care doctor. Follow up with Dr. Coreas in 1 week. Job ID: [id number] [facility]
--- NOTE | 2019-10-20 13:00 | EKG ---
Test Reason : Blood Pressure : / mmHG Vent. Rate : 110 BPM Atrial Rate : 110 BPM P-R Int : 134 ms QRS Dur : 110 ms QT Int : 378 ms P-R-T Axes : 066 084 -14 degrees QTc Int : 511 ms Sinus tachycardia Possible Left atrial enlargement Right bundle branch block Abnormal ECG Confirmed by DREW FRANK DO ([id number]), department editor DARIEL TEE ([id number]) on 10/20/2019 1:00:00 PM Referred By: Confirmed By:DREW FRANK DO
--- NOTE | 2019-10-22 11:47 | PQF ---
Barney Cm, [facility] [id number] CLINICAL DOCUMENTATION CLARIFICATION FORM: POST DISCHARGE Addendum to original discharge summary date: ____ Late entry note date: __ DATE: 10/22/2019 ATTN: MARLINE RICCI Please exercise your independent, professional judgment in responding to the clarification form. Clinical indicators are provided on the bottom of this form for your review Please check appropriate box(s) to clarify if the following diagnosis has been ruled in or ruled out: Sepsis [ ] Ruled in diagnosis [ ] Continue to treat [ ] Resolved [ ] Ruled out diagnosis [ ] Cannot rule out diagnosis [X ] Other diagnosis Acute hypoxic respiratory failure [ ] Unable to determine For continuity of documentation, please document condition throughout progress notes and discharge summary. Thank You. CLINICAL INDICATORS - SIGNS / SYMPTOMS / LABS - Sepsis unspecified- ED record, 10/13, Fabio Yuan DO - Pulse: 114, RR: 22, Temp: 98.7-ED record, 10/13, Fabio Yuan DO - WBC: 9.6 on 10/13, 10.5 on 10/14, 7.6 on 10/15- Laboratory report - HPI: Fever- H&P, 10/13, KEIRY, MARLINE - Possible pneumonia-DS, 10/18, KEIRY, MARLINE RISK FACTORS - Acute kidney injury- H&P, 10/13, KEIRY, MARLINE - Acute hypoxic respiratory failure- H&P, 10/13, KEIRY, MARLINE TREATMENTS - Cefepime.IV- AUG, 10/13 - Levaquin.IV- AUG, 10/13 (This form is maintained as a part of the permanent medical record) [employer] Care Team Coordinator Scheduler [employer] [id number] [employer]. All Rights Reserved Jo [email or web address]
== END 2019-10-19 17:05 | disposition home or self-care (01) | DRG 264 ==
LOC: ERS 15:06 → CCU 18:02 → IMCU/EMU 10-15 13:22 → T4-A 10-18 16:58
PROVIDERS: ADMIT Internal Medicine; ATTEND Internal Medicine
PROC: 02HV33Z Insertion of Infusion Device into Superior Vena Cava, Percutaneous Approach (ICD-10-PCS; principal; 2019-10-15)
PROC: 5A1D70Z Performance of Urinary Filtration, Intermittent, Less than 6 Hours Per Day (ICD-10-PCS; 2019-10-15)
PROC: 8E0ZXY6 Isolation (ICD-10-PCS; 2019-10-15)
PROC: 0JH63XZ Insertion of Tunneled Vascular Access Device into Chest Subcutaneous Tissue and Fascia, Percutaneous Approach (ICD-10-PCS; 2019-10-18)
PROC: 02HV33Z Insertion of Infusion Device into Superior Vena Cava, Percutaneous Approach (ICD-10-PCS; 2019-10-18)
PROC: 031C0ZF Bypass Left Radial Artery to Lower Arm Vein, Open Approach (ICD-10-PCS; 2019-10-18)
DX: I13.2 Hypertensive heart and chronic kidney disease with heart failure and with stage 5 chronic kidney disease, or end stage renal disease (principal); I21.A1 Myocardial infarction type 2; J18.9 Pneumonia, unspecified organism; J96.01 Acute respiratory failure with hypoxia; N18.6 End stage renal disease; I50.21 Acute systolic (congestive) heart failure; N17.9 Acute kidney failure, unspecified; I16.1 Hypertensive emergency; Z20.828 Contact with and (suspected) exposure to other viral communicable diseases; G93.40 Encephalopathy, unspecified; N25.81 Secondary hyperparathyroidism of renal origin; T82.868A Thrombosis due to vascular prosthetic devices, implants and grafts, initial encounter; R74.0 Nonspecific elevation of levels of transaminase and lactic acid dehydrogenase [LDH]; F10.10 Alcohol abuse, uncomplicated; D63.1 Anemia in chronic kidney disease; E83.39 Other disorders of phosphorus metabolism; Y84.1 Kidney dialysis as the cause of abnormal reaction of the patient, or of later complication, without mention of misadventure at the time of the procedure; E78.5 Hyperlipidemia, unspecified
CPT/HCPCS: 36415; 36416; 71045; 71250; 74177; 76770; 80048; 80053; 80076; 81001; 81015; 82553; 82607; 82728; 82746; 83520; 83540; 83550; 83605; 83690; 83880; 83970; 84100; 84484; 85025; 85027; 86038; 86225; 86256; 86580; 86704; 86706; 86803; 87040; 87340; 87635; 90935; 93005; 93306; 93798; 93970; 96365; 96367; 96374; 96375; C1752; C1769; G0257; G0365; J0360; J0670; J0692; J1642; J1644; J1940; J1956; J2001; J2060; J2270; J2405; J2704; J2720; J2765; J3010; J3370; J3490; Q5105; S0020; S0028; U0003

== ENCOUNTER 2019-11-13 08:54 | Emergency (ER) | payer OTHER, SELFPAY ==
[2019-11-13 09:51] LABS: #Basophils 0.1 thou/uL (0.0-0.2); #Eosinphils 0.8 thou/uL (0.0-0.7); #Lymphocytes 1.6 thou/uL (1.20-3.40); #Monocytes 0.6 thou/uL (0.11-0.59); #Neutrophils 2.9 thou/uL (1.40-6.50); %Basophils 1.1 % (0.0-1.0); %Lymphocytes 27.3 % (21.0-51.0); %Monocytes 9.9 % (0.0-10.0); %Neutrophils 48.6 % (42.0-75.0); Mean Corpuscular HGB CONC 33.2 g/dL (32.0-36.0); Mean Corpuscular Hemoglobin 31.5 pg (27.0-31.0); Mean Corpuscular Volume 94.8 fL (78.0-98.0); Platelet Count 236 thou/uL (130-400); RBC Distribution Width 13.5 % (11.5-14.5); Red Blood Cell (RBC) Count 3.17 mill/uL (4.70-6.10)
[2019-11-13 10:10] LABS: ALT (SGPT) 7 U/L (8-55); AST (SGOT) 10 U/L (5-34); Albumin 4.5 g/dL (3.5-5.0); Alkaline Phosphatase 164 U/L (40-110); Anion Gap 25 mmol/L (10-20); Bilirubin, Total 0.5 mg/dL (0.2-1.2); Calc. Creatinine Clearance 0 mL/min (70-130); Calcium 8.8 mg/dL (7.8-10.44); Carbon Dioxide 16 mmol/L (22-29); Chloride 102 mmol/L (98-107); Estimated GFR-MDRD 5; Glucose 108 mg/dL (70-105); Potassium 4.1 mmol/L (3.5-5.1); Protein, Total 8.5 g/dL (6.0-8.3); Sodium 139 mmol/L (136-145)
[2019-11-13] MEDS ORDERED: Heparin 10,000 UNITS/ 10 ML VIAL ONE (10:11)
[2019-11-13 10:22] LABS: BUN (Urea Nitrogen) 150 mg/dL (8.9-20.6)
--- NOTE | 2019-11-13 13:56 | RAD ---
CHEST 1 VIEW: INDICATION: A 49-year-old male with elevated potassium and need for dialysis. COMPARISON: Prior exam dated 10/18/2019. FINDINGS: There is cardiomegaly and pulmonary vascular congestion. There is a right IJ dialysis catheter. Pre viously seen left IJ central venous catheter has been removed. No pneumothorax is evident. No acute osseous abnormality is evident. IMPRESSION: 1. Cardiomegaly with pulmonary vascular congestion is likely related to volume overload. 2. Right internal jugular dialysis catheter. 3. Interval removal of left internal jugular central venous catheter. POS: [facility]
== END 2019-11-13 19:15 | disposition home or self-care (01) ==
LOC: ERS 08:54
DX: I12.9 Hypertensive chronic kidney disease with stage 1 through stage 4 chronic kidney disease, or unspecified chronic kidney disease (principal); N18.9 Chronic kidney disease, unspecified; E87.5 Hyperkalemia; Z79.891 Long term (current) use of opiate analgesic; Z79.899 Other long term (current) drug therapy
CPT/HCPCS: 71045; 80053; 85025; 90935; 93005; 94760; G0257; J1644

== ENCOUNTER 2019-11-22 08:47 | Emergency (ER) | payer SELFPAY ==
[2019-11-22 09:25] LABS: #Basophils 0.1 thou/uL (0.0-0.2); #Eosinphils 1.1 thou/uL (0.0-0.7); #Lymphocytes 1.5 thou/uL (1.20-3.40); #Monocytes 0.8 thou/uL (0.11-0.59); #Neutrophils 5.1 thou/uL (1.40-6.50); %Basophils 0.8 % (0.0-1.0); %Eosinophils 12.7 % (0.0-10.0); %Lymphocytes 17.8 % (21.0-51.0); %Neutrophils 59.8 % (42.0-75.0); Hemoglobin 9.6 g/dL (14.0-18.0); Mean Corpuscular HGB CONC 33.9 g/dL (32.0-36.0); Mean Corpuscular Hemoglobin 31.3 pg (27.0-31.0); Mean Corpuscular Volume 92.5 fL (78.0-98.0); Mean Platelet Volume 7.3 fL (7.4-10.4); Platelet Count 295 thou/uL (130-400); RBC Distribution Width 13.6 % (11.5-14.5); Red Blood Cell (RBC) Count 3.06 mill/uL (4.70-6.10); White Blood Cell (WBC) Count 8.5 thou/uL (4.8-10.8)
[2019-11-22 09:57] LABS: Anion Gap 28 mmol/L (10-20); BUN (Urea Nitrogen) 127 mg/dL (8.9-20.6); Carbon Dioxide 15 mmol/L (22-29); Chloride 100 mmol/L (98-107); Potassium 4.6 mmol/L (3.5-5.1); Sodium 138 mmol/L (136-145)
[2019-11-22 09:58] LABS: ALT (SGPT) Less than 7 U/L (8-55); AST (SGOT) 8 U/L (5-34); Albumin 4.3 g/dL (3.5-5.0); Alkaline Phosphatase 112 U/L (40-110); Bilirubin, Total 0.5 mg/dL (0.2-1.2); CK (CPK) 107 U/L (30-200); Calc. Creatinine Clearance 0 mL/min (70-130); Calcium 7.8 mg/dL (7.8-10.44); Estimated GFR-MDRD 5; Globulin 3.7 g/dL (2.4-3.5); Glucose 125 mg/dL (70-105); Lipase 115 U/L (8-78)
[2019-11-22 10:01] LABS: CKMB 2.2 ng/mL (0-6.6)
--- NOTE | 2019-11-22 10:34 | RAD ---
CHEST 1 VIEW: HISTORY: Dyspnea. COMPARISON: 11/13/2019. FINDINGS: Right venous access catheter. Heart size is within normal limits. The lungs appear clear. IMPRESSION: No significant acute intrathoracic disease. POS: [facility]
[2019-11-22 12:04] LABS: HBSAg Index 0.15 S/CO (0-0.99); Hep B Surf Ag Non-Reactive S/CO (NonReactive)
[2019-11-22] MEDS ORDERED: Heparin 10,000 UNITS/ 10 ML VIAL ONE (12:48)
--- NOTE | 2019-11-23 15:19 | EKG ---
Test Reason : SOB Blood Pressure : / mmHG Vent. Rate : 087 BPM Atrial Rate : 087 BPM P-R Int : 142 ms QRS Dur : 124 ms QT Int : 422 ms P-R-T Axes : 066 064 020 degrees QTc Int : 507 ms Normal sinus rhythm Right bundle branch block Abnormal ECG Confirmed by PAULA CHEN, ALFRED ([id number]), legal editor DARIEL TEE ([id number]) on 11/23/2019 3:18:54 PM Referred By: Confirmed By:ALFRED MITCHELL MD
== END 2019-11-22 19:15 | disposition home or self-care (01) ==
LOC: ERS 08:47
DX: N19 Unspecified kidney failure (principal); I10 Essential (primary) hypertension; Z99.2 Dependence on renal dialysis; Z79.899 Other long term (current) drug therapy; Z79.891 Long term (current) use of opiate analgesic
CPT/HCPCS: 36415; 71045; 80053; 82550; 82553; 83690; 83880; 84484; 85025; 87340; 90935; 93005; G0257; J1644

== ENCOUNTER 2019-11-26 14:12 | Emergency (ER) | payer SELFPAY ==
[2019-11-26] MEDS ORDERED: traMADol HCl 50 MG TAB ONE (15:25)
[2019-11-26] MEDS ORDERED: diphenhydrAMINE 25 MG CAP ONE (15:25)
[2019-11-26 15:52] LABS: #Eosinphils 1.4 thou/uL (0.0-0.7); #Lymphocytes 1.2 thou/uL (1.20-3.40); #Monocytes 1.2 thou/uL (0.11-0.59); #Neutrophils 6.8 thou/uL (1.40-6.50); %Basophils 0.1 % (0.0-1.0); %Eosinophils 13.4 % (0.0-10.0); %Lymphocytes 11.1 % (21.0-51.0); %Monocytes 11.7 % (0.0-10.0); %Neutrophils 63.7 % (42.0-75.0); Hemoglobin 10.6 g/dL (14.0-18.0); Mean Corpuscular HGB CONC 33.6 g/dL (32.0-36.0); Mean Corpuscular Volume 92.2 fL (78.0-98.0); Platelet Count 258 thou/uL (130-400); RBC Distribution Width 13.2 % (11.5-14.5); Red Blood Cell (RBC) Count 3.41 mill/uL (4.70-6.10); White Blood Cell (WBC) Count 10.6 thou/uL (4.8-10.8)
[2019-11-26 16:06] LABS: ALT (SGPT) 10 U/L (8-55); AST (SGOT) 10 U/L (5-34); Albumin 4.5 g/dL (3.5-5.0); Alkaline Phosphatase 103 U/L (40-110); Anion Gap 27 mmol/L (10-20); BUN (Urea Nitrogen) 109 mg/dL (8.9-20.6); Bilirubin, Total 0.4 mg/dL (0.2-1.2); Calc. Creatinine Clearance 0 mL/min (70-130); Calcium 8.5 mg/dL (7.8-10.44); Carbon Dioxide 20 mmol/L (22-29); Chloride 95 mmol/L (98-107); Estimated GFR-MDRD 5; Globulin 3.9 g/dL (2.4-3.5); Glucose 91 mg/dL (70-105); Protein, Total 8.4 g/dL (6.0-8.3); Sodium 137 mmol/L (136-145)
== END 2019-11-26 17:00 | disposition home or self-care (01) ==
LOC: ERS 14:12
DX: K04.7 Periapical abscess without sinus (principal); I12.9 Hypertensive chronic kidney disease with stage 1 through stage 4 chronic kidney disease, or unspecified chronic kidney disease; N18.9 Chronic kidney disease, unspecified; L25.9 Unspecified contact dermatitis, unspecified cause; Z79.891 Long term (current) use of opiate analgesic; Z79.899 Other long term (current) drug therapy
CPT/HCPCS: 80053; 85025; 99283; Q0163

== ENCOUNTER 2019-12-07 14:13 | Emergency (ER) | payer SELFPAY ==
[~2019-12-07 14:13] MED LIST: Heparin 10,000 UNITS/ 10 ML VIAL ONE
[2019-12-07 14:51] LABS: #Basophils 0.1 thou/uL (0.0-0.2); #Eosinphils 3.8 thou/uL (0.0-0.7); #Lymphocytes 1.3 thou/uL (1.20-3.40); #Monocytes 1.2 thou/uL (0.11-0.59); #Neutrophils 9.8 thou/uL (1.40-6.50); %Basophils 0.3 % (0.0-1.0); %Eosinophils 23.7 % (0.0-10.0); %Lymphocytes 8.2 % (21.0-51.0); %Monocytes 7.4 % (0.0-10.0); %Neutrophils 60.4 % (42.0-75.0); Hemoglobin 9.3 g/dL (14.0-18.0); Mean Corpuscular HGB CONC 34.3 g/dL (32.0-36.0); Mean Corpuscular Hemoglobin 30.6 pg (27.0-31.0); Mean Corpuscular Volume 89.2 fL (78.0-98.0); Mean Platelet Volume 6.8 fL (7.4-10.4); Platelet Count 306 thou/uL (130-400); RBC Distribution Width 13.5 % (11.5-14.5); Red Blood Cell (RBC) Count 3.04 mill/uL (4.70-6.10); White Blood Cell (WBC) Count 16.2 thou/uL (4.8-10.8)
--- NOTE | 2019-12-07 14:57 | RAD ---
PORTABLE CHEST: DATE: 12/07/2019. PROVIDED CLINICAL HISTORY: Dizziness and cough. FINDINGS: Comparison 11/22/2019. Cardiac and mediastinal silhouette is unchanged in appearance. Right IJ dialy sis catheter is again seen in similar position. No focal consolidation, pleural fluid, or pneumothor ax apparent. IMPRESSION: No evidence for an acute cardiopulmonary process. POS: [facility]
[2019-12-07 15:12] LABS: ALT (SGPT) 13 U/L (8-55); AST (SGOT) 11 U/L (5-34); Albumin 4.4 g/dL (3.5-5.0); Alkaline Phosphatase 96 U/L (40-110); Anion Gap 29 mmol/L (10-20); Bilirubin, Total 0.5 mg/dL (0.2-1.2); Calc. Creatinine Clearance 0 mL/min (70-130); Carbon Dioxide 14 mmol/L (22-29); Chloride 91 mmol/L (98-107); Estimated GFR-MDRD 4; Globulin 3.6 g/dL (2.4-3.5); Glucose 154 mg/dL (70-105); Potassium 3.4 mmol/L (3.5-5.1); Sodium 131 mmol/L (136-145)
[2019-12-07 15:45] LABS: BUN (Urea Nitrogen) 163 mg/dL (8.9-20.6)
[2019-12-07 15:47] LABS: CKMB 3.3 ng/mL (0-6.6)
== END 2019-12-07 23:20 | disposition home or self-care (01) ==
LOC: ERS 14:13
DX: I12.0 Hypertensive chronic kidney disease with stage 5 chronic kidney disease or end stage renal disease (principal); N18.6 End stage renal disease; D63.1 Anemia in chronic kidney disease; E87.2 Acidosis; Z79.899 Other long term (current) drug therapy
CPT/HCPCS: 36415; 71045; 80053; 82553; 83605; 83880; 84484; 85025; 90935; 93005; G0257; J1644; U0002

== ENCOUNTER 2019-12-21 10:33 | Emergency (ER) | payer SELFPAY ==
--- NOTE | 2019-12-21 11:12 | RAD ---
EXAM: Single view of the chest HISTORY: Dyspnea COMPARISON: 12/07/2019 FINDINGS: Single view of the chest shows a normal sized cardiomediastinal silhouette. A dialysis cat heter is unchanged in position. There is no evidence of consolidation, mass, or pleural effusion. The bones are unremarkable IMPRESSION: No evidence of acute cardiopulmonary disease
[2019-12-21 11:53] LABS: #Basophils 0.1 thou/uL (0.0-0.2); #Eosinphils 1.1 thou/uL (0.0-0.7); #Lymphocytes 1.1 thou/uL (1.20-3.40); #Monocytes 0.5 thou/uL (0.11-0.59); %Basophils 1.2 % (0.0-1.0); %Eosinophils 23.6 % (0.0-10.0); %Lymphocytes 23.3 % (21.0-51.0); %Monocytes 10.5 % (0.0-10.0); %Neutrophils 41.4 % (42.0-75.0); Hemoglobin 8.5 g/dL (14.0-18.0); Mean Corpuscular HGB CONC 34.8 g/dL (32.0-36.0); Mean Corpuscular Hemoglobin 30.7 pg (27.0-31.0); Mean Corpuscular Volume 88.1 fL (78.0-98.0); Mean Platelet Volume 7.2 fL (7.4-10.4); Platelet Count 310 thou/uL (130-400); RBC Distribution Width 13.2 % (11.5-14.5); Red Blood Cell (RBC) Count 2.78 mill/uL (4.70-6.10); White Blood Cell (WBC) Count 4.7 thou/uL (4.8-10.8)
[2019-12-21] MEDS ORDERED: Heparin 10,000 UNITS/ 10 ML VIAL ONE (11:57)
[2019-12-21 12:15] LABS: ALT (SGPT) 9 U/L (8-55); AST (SGOT) 11 U/L (5-34); Albumin 4.2 g/dL (3.5-5.0); Alkaline Phosphatase 102 U/L (40-110); Anion Gap 31 mmol/L (10-20); Bilirubin, Total 0.6 mg/dL (0.2-1.2); Calc. Creatinine Clearance 0 mL/min (70-130); Calcium 6.8 mg/dL (7.8-10.44); Carbon Dioxide 14 mmol/L (22-29); Chloride 97 mmol/L (98-107); Estimated GFR-MDRD 3; Globulin 3.7 g/dL (2.4-3.5); Glucose 95 mg/dL (70-105); Potassium 3.8 mmol/L (3.5-5.1); Protein, Total 7.9 g/dL (6.0-8.3); Sodium 138 mmol/L (136-145)
[2019-12-21 12:31] LABS: BUN (Urea Nitrogen) 168 mg/dL (8.9-20.6)
[2019-12-21] MEDS ORDERED: Sodium Bicarb 50 MEQ/50 ML Abboject 8.4% SYRINGE ONE (13:40)
--- NOTE | 2019-12-21 15:54 | PRG ---
DATE OF SERVICE: 12/21/2019 SUBJECTIVE: Mr. Cm is a 49-year-old male with ESRD and was admitted due to progressive azotemia. He was found to be short of breath, but chest x-ray showed no overt volume overload. Due to the azotemia, the patient is undergoing hemodialysis. We are doing a 4-hour hemodialysis with the decreased blood flow of 350 mL/h. The patient is unable to obtain outpatient dialysis due to insurance issues. OBJECTIVE: VITAL SIGNS: Blood pressure 166/96. GENERAL: He was noted to be awake, comfortable, not in distress. SKIN: Adequate turgor. HEENT: Slightly pale conjunctivae. Anicteric sclerae. NECK: No neck mass. No carotid bruits. No JVD. CHEST: No deformities. LUNGS: Clear breath sounds. HEART: Normal sinus rhythm. No murmurs, gallops, or rubs. ABDOMEN: Globular, soft, nontender. No masses. EXTREMITIES: No edema. No deformities. Positive left upper extremity AV fistula. Positive for bruit. HOME MEDICATIONS: Reviewed. LABORATORY DATA: Laboratories of December 21, 2019; white count 4.7, hemoglobin 8.5. Sodium 138, potassium 3.8, chloride 97, carbon dioxide 14, BUN is 168, creatinine 14.9, glucose 95, calcium 6.8, and albumin 4.2. Chest x-ray; no CHF, no infiltrates. ASSESSMENT AND PLAN: 1. End-stage renal disease. Hemodialysis x4 hours. We will attempt 3 to 4 L of fluid removal as tolerated using a lower blood flow 350 mL/minute. So far, he is tolerating said dialysis. 2. Anemia. Continue iron supplementation. We will give Epogen 7500 units subcu q.week. 3. Mild hypocalcemia. Continue current calcitriol dosing. Job ID: [id number]
[2019-12-21] MEDS ORDERED: EPOETIN ALFA-EPBX (ESRD) 4,000 UNIT/ML VIAL SC SCH (18:00)
[2019-12-21] MEDS ORDERED: Calcium Carbonate 500 MG ChewTAB PO SCH (21:00)
== END 2019-12-21 21:50 | disposition home or self-care (01) ==
LOC: ERS 10:33
DX: I12.0 Hypertensive chronic kidney disease with stage 5 chronic kidney disease or end stage renal disease (principal); N18.6 End stage renal disease; E87.2 Acidosis; Z99.2 Dependence on renal dialysis; Z79.899 Other long term (current) drug therapy
CPT/HCPCS: 71045; 80053; 85025; 90935; 93005; 96374; G0257; J1644

== ENCOUNTER 2019-12-27 13:10 | Emergency (ER) | payer SELFPAY ==
[2019-12-27 14:23] LABS: #Basophils 0.1 thou/uL (0.0-0.2); #Eosinphils 1.1 thou/uL (0.0-0.7); #Lymphocytes 1.4 thou/uL (1.20-3.40); #Monocytes 0.9 thou/uL (0.11-0.59); %Basophils 1.2 % (0.0-1.0); %Lymphocytes 19.1 % (21.0-51.0); %Monocytes 11.6 % (0.0-10.0); %Neutrophils 53.2 % (42.0-75.0); Hemoglobin 7.7 g/dL (14.0-18.0); Mean Corpuscular Hemoglobin 30.7 pg (27.0-31.0); Mean Corpuscular Volume 90.5 fL (78.0-98.0); Mean Platelet Volume 6.9 fL (7.4-10.4); Platelet Count 315 thou/uL (130-400); RBC Distribution Width 13.5 % (11.5-14.5); White Blood Cell (WBC) Count 7.5 thou/uL (4.8-10.8)
[2019-12-27 14:41] LABS: ALT (SGPT) 13 U/L (8-55); AST (SGOT) 12 U/L (5-34); Albumin 4.1 g/dL (3.5-5.0); Alkaline Phosphatase 95 U/L (40-110); Anion Gap 26 mmol/L (10-20); BUN (Urea Nitrogen) 123 mg/dL (8.9-20.6); Bilirubin, Total 0.4 mg/dL (0.2-1.2); Calc. Creatinine Clearance 0 mL/min (70-130); Carbon Dioxide 17 mmol/L (22-29); Chloride 101 mmol/L (98-107); Estimated GFR-MDRD 4; Globulin 3.2 g/dL (2.4-3.5); Glucose 85 mg/dL (70-105); Magnesium 2.3 mg/dL (1.6-2.6); Potassium 4.7 mmol/L (3.5-5.1); Protein, Total 7.3 g/dL (6.0-8.3); Sodium 139 mmol/L (136-145)
[2019-12-27 19:11] LABS: HBSAg Index 0.23 S/CO (0-0.99); Hep B Surf Ag Non-Reactive S/CO (NonReactive)
== END 2019-12-28 00:05 | disposition home or self-care (01) ==
LOC: ERS 13:10
DX: I12.0 Hypertensive chronic kidney disease with stage 5 chronic kidney disease or end stage renal disease (principal); N18.6 End stage renal disease; E87.2 Acidosis; Z79.899 Other long term (current) drug therapy
CPT/HCPCS: 36415; 80053; 83735; 85025; 87340; 90935; 93005; 94760; G0257; J1644

== ENCOUNTER 2020-01-04 09:38 | Emergency (ER) | payer SELFPAY ==
[2020-01-04 10:14] LABS: #Eosinphils 0.9 thou/uL (0.0-0.7); #Lymphocytes 1.5 thou/uL (1.20-3.40); #Neutrophils 3.8 thou/uL (1.40-6.50); %Basophils 0.3 % (0.0-1.0); %Eosinophils 12.6 % (0.0-10.0); %Lymphocytes 20.9 % (21.0-51.0); %Monocytes 13.6 % (0.0-10.0); %Neutrophils 52.5 % (42.0-75.0); Hemoglobin 8.2 g/dL (14.0-18.0); Mean Corpuscular HGB CONC 32.9 g/dL (32.0-36.0); Mean Corpuscular Hemoglobin 29.5 pg (27.0-31.0); Mean Corpuscular Volume 89.5 fL (78.0-98.0); Mean Platelet Volume 6.8 fL (7.4-10.4); Platelet Count 283 thou/uL (130-400); RBC Distribution Width 13.5 % (11.5-14.5); Red Blood Cell (RBC) Count 2.77 mill/uL (4.70-6.10); White Blood Cell (WBC) Count 7.3 thou/uL (4.8-10.8)
[2020-01-04 10:44] LABS: ALT (SGPT) 8 U/L (8-55); AST (SGOT) 9 U/L (5-34); Albumin 4.1 g/dL (3.5-5.0); Alkaline Phosphatase 69 U/L (40-110); Anion Gap 29 mmol/L (10-20); BUN (Urea Nitrogen) 118 mg/dL (8.9-20.6); Bilirubin, Total 0.4 mg/dL (0.2-1.2); Calc. Creatinine Clearance 0 mL/min (70-130); Calcium 8.1 mg/dL (7.8-10.44); Carbon Dioxide 16 mmol/L (22-29); Chloride 96 mmol/L (98-107); Estimated GFR-MDRD 4; Globulin 3.6 g/dL (2.4-3.5); Glucose 106 mg/dL (70-105); Potassium 3.9 mmol/L (3.5-5.1); Protein, Total 7.7 g/dL (6.0-8.3); Sodium 137 mmol/L (136-145)
[2020-01-04] MEDS ORDERED: Heparin 10,000 UNITS/ 10 ML VIAL ONE (10:56)
[2020-01-04 11:02] LABS: CKMB 1.8 ng/mL (0-6.6)
[2020-01-04] MEDS ORDERED: Vancomycin 1 GM in Premix Bag 1 BAG IVPB SCH (14:45)
[2020-01-04] MEDS ORDERED: Gentamicin Sulfate 80 MG in Premix Bag 1 BAG IVPB SCH (14:45)
== END 2020-01-04 19:30 | disposition home or self-care (01) ==
LOC: ERS 09:38
DX: N17.9 Acute kidney failure, unspecified (principal); I12.9 Hypertensive chronic kidney disease with stage 1 through stage 4 chronic kidney disease, or unspecified chronic kidney disease; N18.9 Chronic kidney disease, unspecified; Z79.891 Long term (current) use of opiate analgesic; Z79.899 Other long term (current) drug therapy
CPT/HCPCS: 36415; 80053; 82553; 83880; 84484; 85025; 87070; 87205; 90935; 93005; G0257; J1580; J1644; J3370

== ENCOUNTER 2020-01-10 11:35 | Emergency (ER) | payer SELFPAY ==
[2020-01-10] MEDS ORDERED: Heparin 10,000 UNITS/ 10 ML VIAL ONE (11:36)
[2020-01-10 13:14] LABS: #Basophils 0.1 thou/uL (0.0-0.2); #Eosinphils 1.1 thou/uL (0.0-0.7); #Lymphocytes 1.3 thou/uL (1.20-3.40); #Monocytes 0.7 thou/uL (0.11-0.59); #Neutrophils 3.5 thou/uL (1.40-6.50); %Basophils 1.2 % (0.0-1.0); %Lymphocytes 19.7 % (21.0-51.0); %Monocytes 10.8 % (0.0-10.0); %Neutrophils 52.3 % (42.0-75.0); Hemoglobin 7.7 g/dL (14.0-18.0); Mean Corpuscular HGB CONC 32.7 g/dL (32.0-36.0); Mean Corpuscular Hemoglobin 29.7 pg (27.0-31.0); Mean Platelet Volume 6.4 fL (7.4-10.4); Platelet Count 348 thou/uL (130-400); RBC Distribution Width 13.4 % (11.5-14.5); White Blood Cell (WBC) Count 6.7 thou/uL (4.8-10.8)
[2020-01-10 13:38] LABS: Anion Gap 26 mmol/L (10-20); Calc. Creatinine Clearance 0 mL/min (70-130); Calcium 8.6 mg/dL (7.8-10.44); Carbon Dioxide 17 mmol/L (22-29); Chloride 97 mmol/L (98-107); Estimated GFR-MDRD 5; Glucose 109 mg/dL (70-105); Potassium 4.1 mmol/L (3.5-5.1); Sodium 136 mmol/L (136-145)
[2020-01-10 13:49] LABS: BUN (Urea Nitrogen) 113 mg/dL (8.9-20.6)
[2020-01-10] MEDS ORDERED: EPOETIN ALFA-EPBX (ESRD) 4,000 UNIT/ML VIAL SC SCH (14:45)
[2020-01-10] MEDS ORDERED: ceFAZolin 1 GM/D5W 1 GM in Premix Bag 1 BAG IVPB SCH (17:00)
--- NOTE | 2020-01-10 17:09 | PRG ---
DATE OF SERVICE: 01/10/2020 SUBJECTIVE: Mr. Cm is a 49-year-old male, who was advised by his PCP to go to the ER due to abnormal lab work. As per verbal report, the BUN and creatinine were elevated. He is currently undergoing hemodialysis. During the evaluation, he was noted to have erythema around the catheter site. A week ago , he came in. He was given empiric IV vancomycin and gentamicin. Blood culture at that time showed no negative growth. Our plan is to culture the exit site and empirically treat him again with a course of antibiotics. He will also be discharged with Cipro 250 mg p.o. b.i.d. If no improvement in one week, consider changing the catheter site to another location. The patient voices no new complaints. He denies any fever, chest pain or shortness of breath. OBJECTIVE: VITAL SIGNS: Blood pressure is 112/67, heart rate 80, respiratory rate 12. GENERAL: Awake, alert, comfortable, not in distress. SKIN: Adequate turgor. HEENT: Slightly pale conjunctivae. Anicteric sclerae. NECK: No neck mass. No carotid bruits. No JVD. CHEST: No deformities. LUNGS: Clear breath sounds, no wheezing. HEART: Normal sinus rhythm. No murmurs, gallops, or rubs. ABDOMEN: Globular, soft, nontender. No masses. EXTREMITIES: No edema, no deformities. Dialysis cather on right clavicle area. Mild erythema around the dialysis catheter site. LABORATORY DATA: Labs of January 10, 2020, were reviewed. ASSESSMENT AND PLAN: 1. Exit site infection-blood culture last week was negative. Culture of the exit site was done. Empiric Cipro 250 mg p.o. b.i.d. x10 days. In addition, we will give another dose of Ancef 2 g today. 2. Anemia, Epogen 7500 units subcu daily. 3. Endstage renal disease, hemodialysis x4 hours today. 4. The patient will come back p.r.n. basis at the ER. He is unable to obtain outpatient dialysis due to his financial status. 5. Agree with current management to discharge patient and come back p.r.n. Job ID: [id number] [facility]
== END 2020-01-10 18:51 | disposition home or self-care (01) ==
LOC: ERS 11:35
DX: I12.0 Hypertensive chronic kidney disease with stage 5 chronic kidney disease or end stage renal disease (principal); N18.6 End stage renal disease; Z79.2 Long term (current) use of antibiotics; Z99.2 Dependence on renal dialysis; Z79.899 Other long term (current) drug therapy
CPT/HCPCS: 36415; 80048; 85025; 87070; 87205; 90935; 99284; G0257; J0690; J1644

== ENCOUNTER 2020-02-01 09:26 | Inpatient (IN) | payer OTHER, SELFPAY ==
[2020-02-01 09:57] LABS: #Basophils 0.1 thou/uL (0.0-0.2); #Eosinphils 0.9 thou/uL (0.0-0.7); #Lymphocytes 1.7 thou/uL (1.20-3.40); #Monocytes 0.5 thou/uL (0.11-0.59); #Neutrophils 2.4 thou/uL (1.40-6.50); %Basophils 1.3 % (0.0-1.0); %Eosinophils 16.4 % (0.0-10.0); %Lymphocytes 30.9 % (21.0-51.0); %Monocytes 8.8 % (0.0-10.0); %Neutrophils 42.6 % (42.0-75.0); Mean Corpuscular HGB CONC 33.3 g/dL (32.0-36.0); Mean Corpuscular Hemoglobin 29.9 pg (27.0-31.0); Mean Corpuscular Volume 89.8 fL (78.0-98.0); Mean Platelet Volume 7.3 fL (7.4-10.4); Platelet Count 286 thou/uL (130-400); RBC Distribution Width 14.4 % (11.5-14.5); Red Blood Cell (RBC) Count 2.69 mill/uL (4.70-6.10); White Blood Cell (WBC) Count 5.7 thou/uL (4.8-10.8)
[2020-02-01] MEDS ORDERED: Heparin 10,000 UNITS/ 10 ML VIAL ONE (10:15)
[2020-02-01 10:19] LABS: ALT (SGPT) 7 U/L (8-55); AST (SGOT) 10 U/L (5-34); Albumin 4.2 g/dL (3.5-5.0); Alkaline Phosphatase 70 U/L (40-110); Anion Gap 26 mmol/L (10-20); BUN (Urea Nitrogen) 98 mg/dL (8.9-20.6); Bilirubin, Total 0.4 mg/dL (0.2-1.2); Calc. Creatinine Clearance 0 mL/min (70-130); Calcium 7.7 mg/dL (7.8-10.44); Carbon Dioxide 13 mmol/L (22-29); Chloride 105 mmol/L (98-107); Estimated GFR-MDRD 3; Globulin 3.2 g/dL (2.4-3.5); Glucose 130 mg/dL (70-105); Potassium 4.2 mmol/L (3.5-5.1); Protein, Total 7.4 g/dL (6.0-8.3); Sodium 140 mmol/L (136-145)
[2020-02-01 13:23] LABS: HBSAg Index 0.14 S/CO (0-0.99); Hep B Surf Ag Non-Reactive S/CO (NonReactive)
[2020-02-01] MEDS ORDERED: EPOETIN ALFA-EPBX (ESRD) 4,000 UNIT/ML VIAL SC SCH (15:00)
[2020-02-01] MEDS ORDERED: Gentamicin Sulfate 80 MG in Premix Bag 1 BAG IVPB SCH (16:30)
[2020-02-01] MEDS ORDERED: Vancomycin 1 GM in Premix Bag 1 BAG IVPB SCH (16:30)
[2020-02-01] MEDS ORDERED: Ondansetron PF 4 MG/2 ML Vial IVP PRN (17:52)
--- NOTE | 2020-02-01 18:01 | PDOC.HHP ---
Hospitalist HPI - History of Present Illness Generalized weakness History of Present Illness: Patient is a pleasant 49-year-old gentleman who was seen in the emergency room on February 01, 2020. He was hospitalized at this facility from January 13- of this year for infected dialysis catheter on the right side. The infected catheter was removed and he had a new catheter placed on the left side. He reports mild pain at the new catheter site. He reports generalized weakness that has been going on for a few days. Patient is not on routine hemodialysis due to insurance status. He denies any fever, cough, cold, chills or diarrhea. He denies any nausea or vomiting. He was referred to hospitalist service for admission because of concern that the new dialysis catheter may be infected. ED Course: BP: 159/93, Pulse: 79, Resp: 20 (Non-Labored), Temp: 97.8 (Oral), Pain: 6, O2 sat: 100 on (Room Air), Time: 02/01/2020 09:27. Hospitalist ROS - Review of Systems Constitutional: reports: weakness. denies: fever, chills, sweats, malaise Respiratory: denies: cough Cardiovascular: denies: chest pain Gastrointestinal: denies: nausea, vomiting Genitourinary: denies: dysuria, frequency Hospitalist History - Past Medical History Other Medical History: Past medical history: Hypertension gastritis end-stage renal disease on hemodialysis Surgical history: Dialysis catheter placement and removal on the right side, followed by dialysis catheter placement on the left side. Social history: Patient denies tobacco use, alcohol use or recreational drug use. Family history: Significant for diabetes mellitus. Allergies: No known drug allergies Current medications: Amlodipine 5 mg as needed, Coreg 6.25 mg 2 times a day, gabapentin 100 mg 3 times a day, Lasix 40 mg daily, ferrous sulfate 324 mg daily , zinc 50 mg daily, calcitriol 0.25 mcg daily, prednisone 40 mg daily and tramadol as needed. - Social History Alcohol: reports: Occassional - Exam General Appearance: awake alert Eye: anicteric sclera ENT: normocephalic atraumatic Neck: supple, no thyromegaly Heart: RRR Heart - other findings: Mild tenderness over L dialysis catheter site Respiratory: CTAB Gastrointestinal: soft, normal bowel sounds Skin: no rashes Musculoskeletal: no muscle wasting Psychiatric: normal affect, normal behavior Hospitalist Results - Labs Result Diagrams: 02/01/20 09:43 02/01/20 09:43 Lab results: WBC 5.7 thou/uL (4.8-10.8) 02/01/20 09:43 Hgb 8.0 g/dL (14.0-18.0) L 02/01/20 09:43 Hct 24.1 % (42.0-52.0) L 02/01/20 09:43 MCV 89.8 fL (78.0-98.0) 02/01/20 09:43 Plt Count 286 thou/uL (130-400) 02/01/20 09:43 Neutrophils % 42.6 % (42.0-75.0) 02/01/20 09:43 Sodium 140 mmol/L (136-145) 02/01/20 09:43 Potassium 4.2 mmol/L (3.5-5.1) 02/01/20 09:43 Chloride 105 mmol/L (98-107) 02/01/20 09:43 Carbon Dioxide 13 mmol/L (22-29) L 02/01/20 09:43 BUN 98 mg/dL (8.9-20.6) H 02/01/20 09:43 Creatinine 16.33 mg/dL (0.7-1.3) H 02/01/20 09:43 Glucose 130 mg/dL (70-105) H 02/01/20 09:43 Calcium 7.7 mg/dL (7.8-10.44) L 02/01/20 09:43 Total Bilirubin 0.4 mg/dL (0.2-1.2) 02/01/20 09:43 AST 10 U/L (5-34) 02/01/20 09:43 ALT 7 U/L (8-55) L 02/01/20 09:43 Alkaline Phosphatase 70 U/L (40-110) 02/01/20 09:43 Serum Total Protein 7.4 g/dL (6.0-8.3) 02/01/20 09:43 Albumin 4.2 g/dL (3.5-5.0) 02/01/20 09:43 Hospitalist H&P A/P - Plan Plan: Patient is a pleasant 49-year-old gentleman who was seen in the emergency room on February 01, 2020. His problem list includes: 1. Generalized weakness: Most likely secondary to noncompliance with dialysis regimen. He is being admitted to hospital for further management. He is to undergo dialysis today. There was some concern regarding infection of the new dialysis access. Patient to receive vancomycin with dialysis. We will also add cefepime. Blood cultures have been sent, will follow. 2. End-stage renal disease on dialysis: Nephrology service following for maintenance dialysis. 3. Hypertension: Resume home medications once clarified, monitor vital signs and titrate antihypertensives as needed. 4. Gastritis: Stable. Level of risk: Moderate Level of complexity: Moderate Estimated length of stay in the hospital: Greater than 2 midnights Primary CARE provider: [employer] [facility]
[2020-02-01 22:44] VITALS: BMI 20.5
[2020-02-02] MEDS: Acetaminophen 325 MG TAB PO PRN ×3 (05:03→21:10)
[2020-02-02 05:22] LABS: Hemoglobin 8.9 g/dL (14.0-18.0); Mean Corpuscular HGB CONC 34.2 g/dL (32.0-36.0); Mean Corpuscular Hemoglobin 30.6 pg (27.0-31.0); Mean Corpuscular Volume 89.5 fL (78.0-98.0); Mean Platelet Volume 7.4 fL (7.4-10.4); Platelet Count 227 thou/uL (130-400); Red Blood Cell (RBC) Count 2.91 mill/uL (4.70-6.10); White Blood Cell (WBC) Count 6.6 thou/uL (4.8-10.8)
[2020-02-02 06:11] LABS: Eosinophils 16 % (0-10); Lymphocytes 17 % (21-51); MDiff Complete? YES; Monocytes 5 % (0-10); Neutrophil 62 % (42-75)
[2020-02-02 06:40] LABS: Anion Gap 19 mmol/L (10-20); BUN (Urea Nitrogen) 24 mg/dL (8.9-20.6); Calc. Creatinine Clearance 10 mL/min (70-130); Calcium 8.4 mg/dL (7.8-10.44); Carbon Dioxide 24 mmol/L (22-29); Chloride 98 mmol/L (98-107); Estimated GFR-MDRD 8; Glucose 103 mg/dL (70-105); Potassium 3.3 mmol/L (3.5-5.1); Sodium 138 mmol/L (136-145)
[2020-02-02] MEDS ORDERED: Calcitriol 0.25 MCG CAP PO SCH (10:00)
[2020-02-02] MEDS ORDERED: Vancomycin 1 GM in Premix Bag 1 BAG IVPB SCH (10:00)
--- NOTE | 2020-02-02 10:21 | PRG ---
DATE OF SERVICE: 02/02/2020 SUBJECTIVE: Mr. Cm is a 49-year-old male, who has ESRD and reported to the ER for hemodialysis. Please note, this patient is unable to get outpatient dialysis due to financial reasons. During our dialysis yesterday, he was noted to have a mild erythema around the catheter site. An attempt to send culture was done. In addition, we empirically treated with vancomycin, gentamicin. He will receive several days of IV antibiotics for the moment to see if there will be some improvement in the exit site ? infection. Please note, about 1-1/2 weeks ago, his right-sided dialysis catheter was pulled out due to an exit site infection. Currently, we are using his AV fistula. However, we feel that this fistula is tenuous and it is not advisable for us to pull out this dialysis catheter. He voices no new complaints today. No chest pain or shortness of breath, but he does make mention of pain around that catheter site. OBJECTIVE: VITAL SIGNS: Blood pressure 144/90, heart rate 77, respiratory rate 18, temperature 98.2, and O2 saturation 99%. GENERAL: The patient is awake, alert, comfortable, not in overt distress. SKIN: Adequate turgor. HEENT: Pinkish conjunctivae. HEENT: Slightly pale conjunctivae. Anicteric sclerae. NECK: No neck mass. No carotid bruits. No JVD. CHEST: No deformities. Mild erythema around the exit site of the left dialysis catheter. LUNGS: Clear breath sounds. HEART: Normal sinus rhythm. No murmur. No gallops. No rubs. ABDOMEN: Globular, soft, and nontender. No masses. EXTREMITIES: No edema. No deformities. MEDICATIONS: Of February 02, 2020, reviewed. LABORATORY DATA: Laboratories of February 02, 2020; white count 6.6, hemoglobin 8.9. Sodium 138, potassium 3.3, chloride 98, carbon dioxide 24, BUN 24, creatinine 7, glucose 103, and calcium 8.4. Blood culture x2, no growth today. Culture of exit site shows few WBCs, moderate epithelial cells. No organisms seen and no growth to date. ASSESSMENT AND PLAN: 1. Exit site infection ? - empiric IV antibiotics. We will try on IV antibiotics for a few days and to see how he will respond to it. So far the cultures are negative. 2. End-stage renal disease. Hemodialysis x2.5 hours today. We have used arteriovenous fistula, but as per reliability technicians, these might not be a fully matured arteriovenous fistula yet. For that reason, we cannot pull out that hemodialysis catheter. 3. Anemia, continuing weekly Epogen. Consider starting the patient on iron supplementation. Job ID: [id number]
--- NOTE | 2020-02-02 12:50 | PDOC.HOSPP ---
- Subjective Encounter Date: 02/02/20 Encounter Time: 07:30 Subjective: Patient was seen in follow-up for generalized weakness. He reports feeling better. - Objective Vital Signs & Weight: Vital Signs (12 hours) Temp Pulse Resp BP BP Pulse Ox 02/02/20 07:48 98.2 F 77 18 144/90 H 99 02/02/20 04:00 97.9 F 71 18 130/84 99 Weight Weight 120 lb Result Diagrams: 02/02/20 05:10 02/02/20 05:10 Additional Labs: I reviewed his labs and [facility] Hospitalist ROS - Review of Systems Constitutional: reports: weakness. denies: fever, chills, sweats, malaise Respiratory: denies: cough, dry, shortness of breath, hemoptysis, SOB with excertion, pleuritic pain, sputum, wheezing Cardiovascular: denies: chest pain, palpitations, orthopnea, paroxysmal noc. dyspnea, edema, light headedness Gastrointestinal: denies: nausea, vomiting, abdominal pain, diarrhea, constipation, melena, hematochezia Genitourinary: denies: dysuria, frequency, incontinence, hematuria, retention Skin: denies: rash, lesions, christiano, bruising - Medication Medications: Active Medications Generic Name Dose Route Start Last Admin Trade Name Freq PRN Reason Stop Dose Admin Acetaminophen 650 mg 02/01/20 22:02 02/02/20 05:03 Tylenol PO 650 mg Q4H PRN Administration Headache/Fever or Pain - Exam General Appearance: awake alert Eye: anicteric sclera ENT: moist mucosa Neck: supple, symmetric, no thyromegaly, no lymphadenopathy Heart: RRR, no gallops, no rubs, normal peripheral pulses Respiratory: CTAB, no wheezes, no rales, no ronchi, normal chest expansion Gastrointestinal: soft, non-tender, non-distended, normal bowel sounds Extremities: no cyanosis Skin: no rashes Psychiatric: normal affect, normal behavior Hosp A/P - Plan 1. Generalized weakness: Improved after dialysis. Patient having dialysis today as well. Continue vancomycin and cefepime. Follow-up blood cultures for possible infected dialysis catheter. 2. End-stage renal disease on dialysis: Nephrology service following. 3. Hypertension: Resume losartan and Coreg. 4. Gastritis: Stable.
[2020-02-02] MEDS: Cefepime 1 GM in Sodium Chloride 0.9% 100 ML IVPB SCH ×2 (13:14→21:06)
[2020-02-02] MEDS: Calcium Carbonate 500 MG ChewTAB PO SCH ×2 (13:14→17:22)
[2020-02-02 16:09] LABS: SARS-CoV-2 MS2 Positive; SARS-CoV-2 N Gene Negative; SARS-CoV-2 S Gene Negative; SARS-CoV-2 by NAA Not Detected (NotDetected); SARS-CoV-2 orf1ab Negative
[2020-02-02] MEDS ORDERED: Ferrous Sulfate 325 MG TAB PO SCH (17:00)
[2020-02-02] MEDS: Carvedilol 6.25 MG TAB PO SCH (17:22)
[2020-02-02] MEDS: Ferrous Sulfate 325 MG TAB PO SCH (17:22)
[2020-02-03 04:45] LABS: Anion Gap 16 mmol/L (10-20); BUN (Urea Nitrogen) 31 mg/dL (8.9-20.6); Calc. Creatinine Clearance 10 mL/min (70-130); Calcium 8.3 mg/dL (7.8-10.44); Carbon Dioxide 25 mmol/L (22-29); Chloride 101 mmol/L (98-107); Estimated GFR-MDRD 9; Glucose 96 mg/dL (70-105); Potassium 3.6 mmol/L (3.5-5.1); Sodium 138 mmol/L (136-145)
[2020-02-03 05:28] LABS: Band 1 % (5-11); Eosinophils 9 % (0-10); Hemoglobin 8.4 g/dL (14.0-18.0); Lymphocytes 28 % (21-51); MDiff Complete? YES; Mean Corpuscular HGB CONC 33.7 g/dL (32.0-36.0); Mean Corpuscular Hemoglobin 30.6 pg (27.0-31.0); Mean Corpuscular Volume 90.9 fL (78.0-98.0); Mean Platelet Volume 7.6 fL (7.4-10.4); Monocytes 18 % (0-10); Neutrophil 44 % (42-75); Platelet Count 161 thou/uL (130-400); RBC Distribution Width 13.9 % (11.5-14.5); Red Blood Cell (RBC) Count 2.74 mill/uL (4.70-6.10); White Blood Cell (WBC) Count 6.3 thou/uL (4.8-10.8)
[2020-02-03] MEDS: Calcium Carbonate 500 MG ChewTAB PO SCH ×3 (08:55→17:09)
[2020-02-03] MEDS: Ferrous Sulfate 325 MG TAB PO SCH ×2 (08:57→17:09)
[2020-02-03] MEDS: Carvedilol 6.25 MG TAB PO SCH ×2 (08:57→17:10)
[2020-02-03] MEDS: Losartan 25 MG TAB PO SCH (08:58)
[2020-02-03] MEDS: Gabapentin 100 MG CAP PO SCH (08:58)
[2020-02-03] MEDS: Acetaminophen 325 MG TAB PO PRN ×3 (09:26→22:01)
[2020-02-03] MEDS: Cefepime 1 GM in Sodium Chloride 0.9% 100 ML IVPB SCH ×2 (09:27→21:21)
[2020-02-03] MEDS: Calcitriol 0.25 MCG CAP PO SCH (09:43)
--- NOTE | 2020-02-03 10:26 | PDOC.HOSPP ---
- Subjective Encounter Date: 02/03/20 Encounter Time: 07:00 Subjective: Seen for follow-up regarding generalized weakness. He reports feeling better. Nursing staff report that there was some drainage from left dialysis catheter site. - Objective Vital Signs & Weight: Vital Signs (12 hours) Temp Pulse Resp BP BP Pulse Ox 02/03/20 08:57 149/75 H 02/03/20 07:59 98.1 F 84 16 149/75 H 99 02/03/20 03:21 98 Weight Weight 120 lb Result Diagrams: 02/03/20 03:41 02/03/20 03:41 Additional Labs: I reviewed his MAR and labs Hospitalist ROS - Review of Systems Cardiovascular: denies: chest pain, palpitations, edema, light headedness Genitourinary: denies: dysuria, frequency, incontinence, hematuria, retention - Medication Medications: Active Medications Generic Name Dose Route Start Last Admin Trade Name Freq PRN Reason Stop Dose Admin Acetaminophen 650 mg 02/01/20 22:02 02/03/20 09:26 Tylenol PO 650 mg Q4H PRN Administration Headache/Fever or Pain Calcitriol 0.25 mcg 02/03/20 09:00 02/03/20 09:43 Rocaltrol PO 0.25 mcg DAILY LV Administration Calcium Carbonate 500 mg 02/02/20 12:00 02/03/20 08:55 Tums PO 500 mg TID-WM LV Administration Carvedilol 6.25 mg 02/02/20 17:00 02/03/20 08:57 Coreg PO 6.25 mg BID-WM LV Administration Ferrous Sulfate 325 mg 02/02/20 17:00 02/03/20 08:57 Feosol PO 325 mg BID-WM LV Administration Gabapentin 100 mg 02/03/20 09:00 02/03/20 08:58 Neurontin PO 100 mg DAILY LV Administration Cefepime HCl 1 gm/ Sodium 100 mls @ 200 mls/hr 02/02/20 10:00 02/03/20 09:27 Chloride IVPB 100 mls 1000,2200 LV Administration Losartan Potassium 25 mg 02/03/20 09:00 02/03/20 08:58 Cozaar PO 25 mg DAILY LV Administration Sodium Chloride 10 ml 02/02/20 21:00 02/03/20 09:01 Flush - Normal Saline IVF 10 ml Q12HR LV Administration - Exam General Appearance: awake alert Eye: anicteric sclera ENT: no oropharyngeal lesions, moist mucosa Neck: supple Heart: RRR Respiratory: CTAB, no rales Gastrointestinal: soft, non-tender Extremities: no cyanosis Skin: normal turgor Musculoskeletal: no muscle wasting Psychiatric: normal affect Hosp A/P - Plan 1. Generalized weakness: Improving. Patient underwent dialysis yesterday and the day before yesterday. He is also receiving antibiotics for suspected dialysis catheter infection. Nephrology service will review tomorrow regarding continuation of antibiotics and possible consultation of surgical service. 2. End-stage renal disease on dialysis: Nephrology service following for maintenance dialysis. 3. Hypertension: Stable and controlled. Continue losartan and Coreg. 4. Gastritis: Stable.
--- NOTE | 2020-02-03 10:32 | PRG ---
DATE OF SERVICE: 02/03/2020 SUBJECTIVE: Mr. Cm is a 49-year-old male with ESRD/chronic renal failure. He underwent hemodialysis yesterday. We did use the AV fistula. As previously mentioned, the AV fistula was not fully matured. We currently will be reusing his dialysis catheter. He was admitted due to the ? of exit site infection. He has received IV vancomycin and IV gentamicin x1 dose. We are currently maintaining him on a cephalosporin. No new complaints today. I did examine the left exit site wound. It has some mild erythema, but no discharge. The patient voices no new complaints. OBJECTIVE: VITAL SIGNS: Blood pressure 149/75, heart rate 84, respiratory rate 16, temperature 98.1 with O2 saturation 99% on room air. GENERAL: The patient is awake, alert, comfortable, not in distress. SKIN: Adequate turgor. HEENT: Slightly pale conjunctivae. Anicteric sclerae. NECK: No neck mass. No carotid bruits. No JVD. CHEST: No deformities. LUNGS: Clear breath sounds. HEART: Normal sinus rhythm. No murmur. No gallops. No rubs. ABDOMEN: Globular, soft, nontender. No masses. EXTREMITIES: No edema. No deformities. MEDICATIONS: Medications of February 03, 2020, reviewed. LABORATORY DATA: Laboratories of February 03, 2020; white count 6.3, hemoglobin 8.4. Sodium 138, potassium 3.6, chloride 101, carbon dioxide 25, BUN 31, creatinine 6.78, glucose 96, and calcium 8.3. ASSESSMENT AND PLAN: 1. Chronic anemia, on iron supplementation and weekly Epogen. 2. Exit site infection - so far, blood culture and culture of the discharge have been negative. We will continue one more day of cefepime and then convert to Levaquin. 3. End-stage renal disease, stable. We will continue current hemodialysis regimen. I have scheduled him for another 4-hour hemodialysis treatment this coming Tuesday. 4. Anemia, on Epogen and iron supplementation. 5. Recheck CBC and basic metabolic profile in a.m. Job ID: [id number]
[2020-02-04 03:51] LABS: #Basophils 0.1 thou/uL (0.0-0.2); #Eosinphils 1.2 thou/uL (0.0-0.7); #Lymphocytes 1.5 thou/uL (1.20-3.40); #Neutrophils 3.3 thou/uL (1.40-6.50); %Basophils 1.2 % (0.0-1.0); %Eosinophils 16.7 % (0.0-10.0); %Lymphocytes 21.3 % (21.0-51.0); %Neutrophils 46.9 % (42.0-75.0); Hemoglobin 8.1 g/dL (14.0-18.0); Mean Corpuscular HGB CONC 33.7 g/dL (32.0-36.0); Mean Corpuscular Hemoglobin 30.2 pg (27.0-31.0); Mean Corpuscular Volume 89.7 fL (78.0-98.0); Mean Platelet Volume 7.9 fL (7.4-10.4); Platelet Count 169 thou/uL (130-400); Red Blood Cell (RBC) Count 2.68 mill/uL (4.70-6.10); White Blood Cell (WBC) Count 7.1 thou/uL (4.8-10.8)
[2020-02-04 04:29] LABS: Anion Gap 18 mmol/L (10-20); BUN (Urea Nitrogen) 45 mg/dL (8.9-20.6); Calc. Creatinine Clearance 8 mL/min (70-130); Calcium 8.6 mg/dL (7.8-10.44); Carbon Dioxide 21 mmol/L (22-29); Chloride 101 mmol/L (98-107); Estimated GFR-MDRD 6; Glucose 90 mg/dL (70-105); Sodium 136 mmol/L (136-145)
[2020-02-04] MEDS: Acetaminophen 325 MG TAB PO PRN ×2 (06:27→18:17)
[2020-02-04] MEDS: Ferrous Sulfate 325 MG TAB PO SCH ×2 (07:56→18:15)
[2020-02-04] MEDS: Losartan 25 MG TAB PO SCH (07:56)
[2020-02-04] MEDS: Carvedilol 6.25 MG TAB PO SCH ×2 (07:56→18:14)
[2020-02-04] MEDS: Calcium Carbonate 500 MG ChewTAB PO SCH ×3 (07:56→18:14)
[2020-02-04] MEDS: Calcitriol 0.25 MCG CAP PO SCH (07:56)
[2020-02-04] MEDS: Gabapentin 100 MG CAP PO SCH (07:56)
--- NOTE | 2020-02-04 08:36 | PRG ---
DATE OF SERVICE: 02/04/2020 SERVICE: Renal Medicine. SUBJECTIVE: Mr. Cm is a 49-year-old male with ESRD - on hemodialysis. We have scheduled him for dialysis. He was admitted due to ? of infected exit site. He currently is receiving IV antibiotics. No new complaints today. No chest pain or shortness of breath. OBJECTIVE: VITAL SIGNS: Blood pressure 143/74, heart rate 84, respiratory rate 16, O2 saturation 97%, and temperature 97.5. GENERAL: Awake, alert, comfortable, supine, not in distress. SKIN: Adequate turgor. HEENT: Slightly pale conjunctivae. Anicteric sclerae. NECK: No neck mass. No carotid bruits. No JVD. CHEST: No deformities. LUNGS: Clear breath sounds. No wheezing. No crackles. HEART: Normal sinus rhythm. No murmur. No gallops. No rubs. ABDOMEN: Globular, soft, and nontender. No masses. EXTREMITIES: No edema. No deformities. MEDICATIONS: Of February 04, 2020, reviewed. LABORATORY DATA: Laboratories of February 04, 2020; white count 7.1, hemoglobin 8.1. Sodium 136, potassium 4, chloride 101, carbon dioxide 21, BUN 45, creatinine 8.85, and calcium 8.6. ASSESSMENT AND PLAN: 1. End-stage renal disease/chronic renal failure, hemodialysis for 4 hours today. Fluid removal as tolerated. We will attempt to use arteriovenous fistula if this is functional. If not, we will use dialysis catheter. 2. Exit site infection. So far, blood culture and culture of the discharge are all negative. Consider converting IV cefepime to Cipro 250 mg p.o. b.i.d. in this patient for a possible discharge. 3. Anemia, continuing weekly Epogen. Continue iron supplementation. Job ID: [id number]
[2020-02-04 09:31] VITALS: TEMP 98.1
[2020-02-04] MEDS ORDERED: Cefepime 0.5 GM in Sodium Chloride 0.9% 100 ML IVPB SCH (10:00)
[2020-02-04 18:17] VITALS: BP 175/91
--- NOTE | 2020-02-05 06:26 | DIS ---
DATE OF ADMISSION: 02/01/2020 DATE OF DISCHARGE: 02/04/2020 DISCHARGE DISPOSITION: Home. FOLLOWUP: Follow up with primary care physician at [facility] in 1 week. The patient was seen and examined on the day of discharge, denies any new complaints. The patient will undergo hemodialysis prior to discharge. DISCHARGE MEDICATION: Ciprofloxacin 250 mg twice daily for 1 week. All other home medications were left unchanged. BRIEF HOSPITAL COURSE: The patient is a 49-year-old male with end-stage renal disease, on intermittent hemodialysis, presented to the emergency room with generalized weakness. There was also some mild pain around the dialysis catheter site. He was admitted to the medical floor. His blood culture so far has been negative. Final blood cultures are pending at this time. He was placed on empiric antibiotics that will be transitioned to oral ciprofloxacin. The patient was evaluated by Nephrology and underwent hemodialysis as well. His creatinine on admission was 16.3 with bicarbonate of 13. He has been cleared by Nephrology for discharge. FINAL DIAGNOSES: 1. Infected dialysis catheter exit site. 2. End-stage renal disease, on intermittent hemodialysis due to financial reason. 3. Hypertension. 4. Anemia due to chronic disease. 5. Hyponatremia. 6. Metabolic acidosis. 7. The patient was extensively counseled to be compliant with hemodialysis. Time coordinating this discharge is 37 minutes. Job ID: [id number]
== END 2020-02-04 18:05 | disposition home or self-care (01) | DRG 314 ==
LOC: ERS 09:26 → ONC 18:23
PROVIDERS: ADMIT Internal Medicine; ATTEND Internal Medicine
PROC: 5A1D70Z Performance of Urinary Filtration, Intermittent, Less than 6 Hours Per Day (ICD-10-PCS; principal; 2020-02-01)
DX: T80.212A Local infection due to central venous catheter, initial encounter (principal); N18.6 End stage renal disease; I12.0 Hypertensive chronic kidney disease with stage 5 chronic kidney disease or end stage renal disease; E87.1 Hypo-osmolality and hyponatremia; E87.2 Acidosis; Z20.828 Contact with and (suspected) exposure to other viral communicable diseases; Y83.8 Other surgical procedures as the cause of abnormal reaction of the patient, or of later complication, without mention of misadventure at the time of the procedure; D63.1 Anemia in chronic kidney disease; K29.70 Gastritis, unspecified, without bleeding; Z99.2 Dependence on renal dialysis; Z91.15 Patient's noncompliance with renal dialysis; Z79.899 Other long term (current) drug therapy; Z79.52 Long term (current) use of systemic steroids
CPT/HCPCS: 36415; 80048; 80053; 85025; 87040; 87070; 87205; 87340; 87635; 90935; 99285; G0257; J0692; J1580; J1644; J3370; J3490; U0003

== ENCOUNTER 2020-02-21 09:32 | Emergency (ER) | payer SELFPAY ==
[2020-02-21 10:28] LABS: #Basophils 0.1 thou/uL (0.0-0.2); #Eosinphils 0.6 thou/uL (0.0-0.7); #Lymphocytes 1.8 thou/uL (1.20-3.40); #Monocytes 0.5 thou/uL (0.11-0.59); #Neutrophils 3.1 thou/uL (1.40-6.50); %Basophils 1.4 % (0.0-1.0); %Eosinophils 9.8 % (0.0-10.0); %Lymphocytes 29.2 % (21.0-51.0); %Neutrophils 50.6 % (42.0-75.0); Hemoglobin 8.2 g/dL (14.0-18.0); Mean Corpuscular HGB CONC 33.7 g/dL (32.0-36.0); Mean Corpuscular Hemoglobin 30.9 pg (27.0-31.0); Mean Corpuscular Volume 91.8 fL (78.0-98.0); Mean Platelet Volume 7.9 fL (7.4-10.4); Platelet Count 251 thou/uL (130-400); RBC Distribution Width 14.3 % (11.5-14.5); Red Blood Cell (RBC) Count 2.65 mill/uL (4.70-6.10)
[2020-02-21 10:57] LABS: ALT (SGPT) 11 U/L (8-55); AST (SGOT) 13 U/L (5-34); Albumin 4.3 g/dL (3.5-5.0); Alkaline Phosphatase 83 U/L (40-110); Anion Gap 28 mmol/L (10-20); BUN (Urea Nitrogen) 120 mg/dL (8.9-20.6); Bilirubin, Total 0.4 mg/dL (0.2-1.2); Calc. Creatinine Clearance 0 mL/min (70-130); Calcium 8.1 mg/dL (7.8-10.44); Carbon Dioxide 15 mmol/L (22-29); Chloride 96 mmol/L (98-107); Estimated GFR-MDRD 3; Globulin 3.4 g/dL (2.4-3.5); Glucose 137 mg/dL (70-105); Potassium 4.2 mmol/L (3.5-5.1); Protein, Total 7.7 g/dL (6.0-8.3); Sodium 135 mmol/L (136-145)
--- NOTE | 2020-02-23 11:33 | EKG ---
Test Reason : Blood Pressure : / mmHG Vent. Rate : 075 BPM Atrial Rate : 075 BPM P-R Int : 172 ms QRS Dur : 134 ms QT Int : 464 ms P-R-T Axes : 056 068 049 degrees QTc Int : 518 ms Normal sinus rhythm Right bundle branch block Abnormal ECG Confirmed by JOHN CHEN, JOHN Ramos ([id number]), editor department DARIEL TEE ([id number]) on 02/23/2020 11:33:13 AM Referred By: Confirmed By:JOHN LOPEZ MD
== END 2020-02-21 17:23 | disposition home or self-care (01) ==
LOC: ERS 09:32
DX: I12.0 Hypertensive chronic kidney disease with stage 5 chronic kidney disease or end stage renal disease (principal); N18.6 End stage renal disease; Z91.15 Patient's noncompliance with renal dialysis; Z79.899 Other long term (current) drug therapy
CPT/HCPCS: 36415; 80053; 83880; 85025; 90935; 93005; G0257

== ENCOUNTER 2020-03-04 10:48 | Emergency (ER) | payer SELFPAY ==
[2020-03-04 12:18] LABS: #Basophils 0.1 thou/uL (0.0-0.2); #Eosinphils 0.5 thou/uL (0.0-0.7); #Lymphocytes 1.3 thou/uL (1.20-3.40); #Monocytes 0.5 thou/uL (0.11-0.59); #Neutrophils 2.3 thou/uL (1.40-6.50); %Basophils 1.6 % (0.0-1.0); %Eosinophils 11.8 % (0.0-10.0); %Lymphocytes 27.8 % (21.0-51.0); %Monocytes 10.2 % (0.0-10.0); %Neutrophils 48.6 % (42.0-75.0); Hemoglobin 7.3 g/dL (14.0-18.0); Mean Corpuscular HGB CONC 32.3 g/dL (32.0-36.0); Mean Corpuscular Hemoglobin 30.1 pg (27.0-31.0); Mean Platelet Volume 7.9 fL (7.4-10.4); Platelet Count 174 thou/uL (130-400); RBC Distribution Width 14.7 % (11.5-14.5); Red Blood Cell (RBC) Count 2.41 mill/uL (4.70-6.10); White Blood Cell (WBC) Count 4.6 thou/uL (4.8-10.8)
[2020-03-04 12:38] LABS: ALT (SGPT) 16 U/L (8-55); AST (SGOT) 13 U/L (5-34); Albumin 4.4 g/dL (3.5-5.0); Alkaline Phosphatase 102 U/L (40-110); Anion Gap 27 mmol/L (10-20); BUN (Urea Nitrogen) 125 mg/dL (8.9-20.6); Bilirubin, Total 0.5 mg/dL (0.2-1.2); Calc. Creatinine Clearance 0 mL/min (70-130); Calcium 8.2 mg/dL (7.8-10.44); Carbon Dioxide 12 mmol/L (22-29); Chloride 100 mmol/L (98-107); Estimated GFR-MDRD 3; Globulin 3.2 g/dL (2.4-3.5); Glucose 158 mg/dL (70-105); Magnesium 2.9 mg/dL (1.6-2.6); Potassium 4.1 mmol/L (3.5-5.1); Protein, Total 7.6 g/dL (6.0-8.3); Sodium 135 mmol/L (136-145)
[2020-03-04 12:44] LABS: Phosphorus 12.7 mg/dL (2.3-4.7)
[2020-03-04 14:17] LABS: HBSAg Index 0.17 S/CO (0-0.99); Hep B Surf Ag Non-Reactive S/CO (NonReactive)
[2020-03-04] MEDS ORDERED: EPOETIN ALFA-EPBX (ESRD) 4,000 UNIT/ML VIAL SC SCH (15:15)
[2020-03-04] MEDS ORDERED: Calcium Carbonate 500 MG ChewTAB PO SCH (17:00)
[2020-03-06] MEDS ORDERED: EPOETIN ALFA-EPBX (ESRD) 4,000 UNIT/ML VIAL SC SCH (09:00)
[2020-03-06] MEDS ORDERED: Calcium Carbonate 500 MG ChewTAB PO SCH (12:00)
== END 2020-03-04 18:23 | disposition home or self-care (01) ==
LOC: ERS 10:48
DX: I12.0 Hypertensive chronic kidney disease with stage 5 chronic kidney disease or end stage renal disease (principal); N18.6 End stage renal disease; D64.9 Anemia, unspecified; Z71.6 Tobacco abuse counseling; Z99.2 Dependence on renal dialysis
CPT/HCPCS: 36415; 36430; 80053; 83735; 84100; 85025; 86850; 86900; 86901; 87340; 90935; 99406; G0257; P9016; Q5105

== ENCOUNTER 2020-03-14 08:47 | Emergency (ER) | payer SELFPAY ==
[2020-03-14 09:29] LABS: #Basophils 0.1 thou/uL (0.0-0.2); #Eosinphils 0.6 thou/uL (0.0-0.7); #Lymphocytes 1.5 thou/uL (1.20-3.40); #Monocytes 0.7 thou/uL (0.11-0.59); #Neutrophils 2.4 thou/uL (1.40-6.50); %Basophils 1.3 % (0.0-1.0); %Eosinophils 11.2 % (0.0-10.0); %Lymphocytes 28.9 % (21.0-51.0); %Monocytes 12.4 % (0.0-10.0); %Neutrophils 46.3 % (42.0-75.0); Hemoglobin 9.1 g/dL (14.0-18.0); Mean Corpuscular HGB CONC 34.1 g/dL (32.0-36.0); Mean Corpuscular Hemoglobin 31.8 pg (27.0-31.0); Mean Corpuscular Volume 93.2 fL (78.0-98.0); Mean Platelet Volume 7.3 fL (7.4-10.4); Platelet Count 230 thou/uL (130-400); RBC Distribution Width 14.6 % (11.5-14.5); Red Blood Cell (RBC) Count 2.86 mill/uL (4.70-6.10); White Blood Cell (WBC) Count 5.3 thou/uL (4.8-10.8)
[2020-03-14 09:55] LABS: ALT (SGPT) 7 U/L (8-55); AST (SGOT) 11 U/L (5-34); Albumin 4.3 g/dL (3.5-5.0); Alkaline Phosphatase 77 U/L (40-110); Anion Gap 26 mmol/L (10-20); BUN (Urea Nitrogen) 121 mg/dL (8.9-20.6); Bilirubin, Total 0.5 mg/dL (0.2-1.2); Calc. Creatinine Clearance 0 mL/min (70-130); Carbon Dioxide 15 mmol/L (22-29); Chloride 97 mmol/L (98-107); Estimated GFR-MDRD 3; Globulin 2.9 g/dL (2.4-3.5); Glucose 99 mg/dL (70-105); Potassium 4.2 mmol/L (3.5-5.1); Protein, Total 7.2 g/dL (6.0-8.3); Sodium 134 mmol/L (136-145)
[2020-03-14 09:59] LABS: Phosphorus 14.4 mg/dL (2.3-4.7)
[2020-03-14] MEDS ORDERED: EPOETIN ALFA-EPBX (ESRD) 4,000 UNIT/ML VIAL SC SCH (14:00)
== END 2020-03-14 18:20 | disposition home or self-care (01) ==
LOC: ERS 08:47
DX: I12.0 Hypertensive chronic kidney disease with stage 5 chronic kidney disease or end stage renal disease (principal); N18.6 End stage renal disease; Z91.15 Patient's noncompliance with renal dialysis
CPT/HCPCS: 36415; 80053; 83735; 84100; 85025; 90935; 93005; G0257; Q5105

== ENCOUNTER 2020-03-20 10:53 | Inpatient (IN) | payer MEDICAID, OTHER ==
[2020-03-20 12:35] LABS: #Basophils 0.1 thou/uL (0.0-0.2); #Eosinphils 0.6 thou/uL (0.0-0.7); #Lymphocytes 1.4 thou/uL (1.20-3.40); #Monocytes 0.7 thou/uL (0.11-0.59); %Lymphocytes 17.5 % (21.0-51.0); %Monocytes 8.9 % (0.0-10.0); %Neutrophils 64.6 % (42.0-75.0); Hemoglobin 9.8 g/dL (14.0-18.0); Mean Corpuscular HGB CONC 32.6 g/dL (32.0-36.0); Mean Corpuscular Hemoglobin 31.6 pg (27.0-31.0); Mean Platelet Volume 9.2 fL (7.4-10.4); Platelet Count 202 thou/uL (130-400); RBC Distribution Width 14.3 % (11.5-14.5); Red Blood Cell (RBC) Count 3.12 mill/uL (4.70-6.10); White Blood Cell (WBC) Count 7.8 thou/uL (4.8-10.8)
[2020-03-20 13:00] LABS: ALT (SGPT) 11 U/L (8-55); AST (SGOT) 14 U/L (5-34); Albumin 4.7 g/dL (3.5-5.0); Alkaline Phosphatase 111 U/L (40-110); Anion Gap 24 mmol/L (10-20); BUN (Urea Nitrogen) 79 mg/dL (8.9-20.6); Bilirubin, Total 0.5 mg/dL (0.2-1.2); Calc. Creatinine Clearance 0 mL/min (70-130); Calcium 8.7 mg/dL (7.8-10.44); Carbon Dioxide 24 mmol/L (22-29); Chloride 89 mmol/L (98-107); Estimated GFR-MDRD 4; Globulin 3.6 g/dL (2.4-3.5); Glucose 99 mg/dL (70-105); Protein, Total 8.3 g/dL (6.0-8.3); Sodium 133 mmol/L (136-145)
--- NOTE | 2020-03-20 14:02 | RAD ---
XR Chest 1 View Portable HISTORY: Shortness of breath COMPARISON: 01/16/2020 FINDINGS: The heart size is normal. Left-sided IJ dialysis catheter is again seen with tip in the pro jection of cavoatrial junction. The lungs are well expanded without focal areas of consolidation, pneumothorax or pleural effusions. IMPRESSION: No radiographic evidence of acute cardiopulmonary process.
[2020-03-20] MEDS ORDERED: Ketorolac Tromethamine 30 MG/ML VIAL ONE (14:06)
[2020-03-20 16:05] LABS: HBSAB Concentration Less than 8.00 mIU/mL; HBSAg Index 0.12 S/CO (0-0.99); Hep B Core Total Ab Non-Reactive (NonReactive); Hep B Core Total Index 0.04 S/CO (0-0.79); Hep B Surf AB Non-Reactive (NonReactive); Hep B Surf Ag Non-Reactive S/CO (NonReactive); Hep C IgG Ab Non-Reactive (NonReactive); Hep C Index 0.11 S/CO (0-0.79)
[2020-03-20] MEDS ORDERED: EPOETIN ALFA-EPBX (ESRD) 4,000 UNIT/ML VIAL SC SCH (16:15)
[2020-03-20] MEDS ORDERED: Amlodipine 5 MG TAB PO STA (16:51)
--- NOTE | 2020-03-20 17:18 | PDOC.HHP ---
Hospitalist HPI - History of Present Illness Needs dialysis History of Present Illness: Mr. Cm is a 49-year-old male with a past medical history of end-stage renal disease, hypertension, gastritis who presents to the ED for compassionate dialysis. Patient does not have health insurance and has been coming to the ED weekly on or Tuesday to receive dialysis. Patient's foley artist is Dr. Diop who wished to admit patient to set up a more consistent outpatient dialysis regimen. Patient currently denies any complaints but does report fatigue which he usually feels weekly prior to dialysis sessions. In the emergency room initial vital signs 202/113, 83, 20, 97.6, 100% on room air. Chest x-ray with no acute pathology. BNP 1165, troponin 0 0.019. BUN/CR 79/14.65. H/H9 0.8/30.2. White blood cell count 7.8. EKG showed normal sinus rhythm with old right bundle branch block. Hospitalist ROS - Review of Systems Constitutional: reports: malaise. denies: fever, chills, sweats, weakness, other Eyes: denies: vision change ENT: denies: mouth pain, throat swelling Respiratory: denies: cough, dry, shortness of breath, hemoptysis, SOB with excer tion, sputum Cardiovascular: denies: chest pain, palpitations, orthopnea, paroxysmal noc. dyspnea Gastrointestinal: denies: nausea, vomiting, abdominal pain, diarrhea, melena, hematochezia Musculoskeletal: denies: neck pain, shoulder pain, arm pain, back pain, hand pain, leg pain, foot pain, other Skin: denies: rash, lesions, christiano, bruising, other Neurological: denies: weakness, numbness, incoordination, change in speech, confusion, seizures, other - Medication Medications: Home medications include multivitamin and patient recently reports he was prescribed an antidepressant medication by his PCP Dr. Tyler who called this in yesterday. Hospitalist History - Past Medical History Other Medical History: Past medical history includes End-stage renal disease Hypertension Gastritis History of infected dialysis catheter - Past Surgical History Other Surgical History: Past surgical history includes fistula in the left arm and dialysis port - Family History Other Family History: No pertinent family history - Social History Smoking Status: Never smoker Alcohol: reports: None, Occassional Drugs: reports: none Living Situation: With Family Activity level: independent ambulation - Exam General Appearance: NAD, awake alert Eye: PERRL, anicteric sclera ENT: normocephalic atraumatic, no oropharyngeal lesions, moist mucosa Neck: supple, symmetric, no JVD, no thyromegaly, no lymphadenopathy, no carotid bruit Heart: RRR, no murmur, no gallops, no rubs, normal peripheral pulses Respiratory: CTAB, no wheezes, no rales, no ronchi, normal chest expansion, no tachypnea, normal percussion Gastrointestinal: soft, non-tender, non-distended, normal bowel sounds, no palpable masses, no hepatomegaly, no splenomegaly, no bruit Extremities: no cyanosis, no clubbing, no edema Skin: normal turgor, no lesions, no rashes Neurological: normal sensation to touch, no weakness, no focal deficits, no new deficit Musculoskeletal: normal tone, normal strength, no muscle wasting Psychiatric: normal affect, normal behavior, A&O x 3 Hospitalist Results - Labs Result Diagrams: 03/22/20 04:04 03/22/20 04:04 Lab results: WBC 7.8 thou/uL (4.8-10.8) 03/20/20 12:18 Hgb 9.8 g/dL (14.0-18.0) L 03/20/20 12:18 Hct 30.2 % (42.0-52.0) L 03/20/20 12:18 MCV 97.0 fL (78.0-98.0) 03/20/20 12:18 Plt Count 202 thou/uL (130-400) 03/20/20 12:18 Neutrophils % 64.6 % (42.0-75.0) 03/20/20 12:18 Sodium 133 mmol/L (136-145) L 03/20/20 12:18 Potassium 4.0 mmol/L (3.5-5.1) 03/20/20 12:18 Chloride 89 mmol/L (98-107) L 03/20/20 12:18 Carbon Dioxide 24 mmol/L (22-29) 03/20/20 12:18 BUN 79 mg/dL (8.9-20.6) H 03/20/20 12:18 Creatinine 14.65 mg/dL (0.7-1.3) H 03/20/20 12:18 Glucose 99 mg/dL (70-105) 03/20/20 12:18 Calcium 8.7 mg/dL (7.8-10.44) 03/20/20 12:18 Total Bilirubin 0.5 mg/dL (0.2-1.2) 03/20/20 12:18 AST 14 U/L (5-34) 03/20/20 12:18 ALT 11 U/L (8-55) 03/20/20 12:18 Alkaline Phosphatase 111 U/L (40-110) H 03/20/20 12:18 Troponin I 0.019 ng/mL (< 0.028) 03/20/20 12:09 B-Natriuretic Peptide 1165.9 pg/mL (0-100) H 03/20/20 12:09 Serum Total Protein 8.3 g/dL (6.0-8.3) 03/20/20 12:18 Albumin 4.7 g/dL (3.5-5.0) 03/20/20 12:18 Hospitalist H&P A/P - Plan Plan: End-stage renal disease History of end-stage renal disease on dialysis. Patient has been getting compassionate dialysis by going to the emergency room on a weekly basis. Dominga ent's foley artist is Dr. AGGARWAL, who would like the patient to get set up with a more permanent outpatient solution. We will work on this with case management during admission. Currently the patient denies any symptoms other than his usual fatigue prior to dialysis runs. BUN/CR 79/14.65. Potassium 4.0. Plan: Dialysis Trend electrolytes and metabolic panel Nephrology following, recommendations appreciated Case management Hypertensive urgency Patient presented hypertensive to . Patient received IV labetalol, and we will start patient on 5 mg of amlodipine p.o. daily. Further recommendations from nephrology appreciated. Plan: IV labetalol Amlodipine 5 mg Continue to monitor blood pressures closely Anemia of chronic disease Patient with anemia of chronic disease secondary to end-stage renal disease H/H9 0.8/30.2. Continue EPO per nephrology. Depression Patient reports that he has been feeling extremely depressed recently in regards to his situation with dialysis. Reports he has not been sleeping or eating well. He recently discussed this with his primary care physician who started him on an antidepressant medication but he has not yet picked this up. Patient currently denies any suicidal ideation. Plan: We will continue antidepressant medication once dosage confirmed. DVT prophylaxis: Heparin Full code Case discussed with attending physician Dr. Jack.
[2020-03-20 21:26] VITALS: BMI 21.9
[2020-03-20] MEDS: Heparin 5,000 UNITS/ML VIAL SC SCH (22:34)
[2020-03-20] MEDS ORDERED: Tuberculin PPD 0.1 ML VIAL I-DERMAL SCH (23:00)
[2020-03-21 06:16] LABS: #Basophils 0.1 thou/uL (0.0-0.2); #Eosinphils 0.4 thou/uL (0.0-0.7); #Lymphocytes 1.8 thou/uL (1.20-3.40); #Monocytes 0.9 thou/uL (0.11-0.59); #Neutrophils 7.4 thou/uL (1.40-6.50); %Basophils 1.1 % (0.0-1.0); %Eosinophils 3.6 % (0.0-10.0); %Monocytes 8.2 % (0.0-10.0); %Neutrophils 70.1 % (42.0-75.0); Hemoglobin 10.1 g/dL (14.0-18.0); Mean Corpuscular Hemoglobin 31.8 pg (27.0-31.0); Mean Corpuscular Volume 96.5 fL (78.0-98.0); Mean Platelet Volume 7.5 fL (7.4-10.4); Platelet Count 210 thou/uL (130-400); RBC Distribution Width 14.6 % (11.5-14.5); Red Blood Cell (RBC) Count 3.16 mill/uL (4.70-6.10); White Blood Cell (WBC) Count 10.5 thou/uL (4.8-10.8)
[2020-03-21 06:21] LABS: Anion Gap 19 mmol/L (10-20); BUN (Urea Nitrogen) 43 mg/dL (8.9-20.6); Calc. Creatinine Clearance 7 mL/min (70-130); Calcium 8.6 mg/dL (7.8-10.44); Carbon Dioxide 25 mmol/L (22-29); Chloride 94 mmol/L (98-107); Estimated GFR-MDRD 6; Glucose 94 mg/dL (70-105); Potassium 3.8 mmol/L (3.5-5.1); Sodium 134 mmol/L (136-145)
[2020-03-21] MEDS: Heparin 5,000 UNITS/ML VIAL SC SCH ×2 (09:09→20:51)
[2020-03-21] MEDS: NIFEdipine XL 30 MG TAB PO SCH (09:10)
--- NOTE | 2020-03-21 10:28 | CON ---
DATE OF CONSULTATION: 03/21/20 HISTORY OF PRESENT ILLNESS: Mr. Cm is a 49-year-old male with ESRD and admitted due to progressive azotemia/uremic signs and symptoms. He underwent emergent hemodialysis yesterday for about 3 hours and 45 minutes. This morning, he is feeling better. Denies any chest pain or shortness of breath. We are following up this patient for management of his ESRD. REVIEW OF SYSTEMS: Positive for generalized malaise. No nausea. No syncopal episode. No fever or chills. No productive cough. No dysuria. No urinary frequency. No abdominal pain. Appetite and energy level are decreased. No hematochezia. No melena. HOME MEDICATIONS: Include calcium carbonate 500 mg t.i.d. with meals. PAST MEDICAL HISTORY: 1. ESRD secondary to of unclear etiology. 2. History of hyperphosphatemia. PAST SURGICAL HISTORY: Status post cuffed hemodialysis catheter placement, status post AV fistula. SOCIAL HISTORY: The patient lives in [place] for the last 20 years. He has 4 children. He is . Does not smoke. Occasional alcohol. No IV drug abuse. Status post blood transfusion. Currently, unemployed. ALLERGIES: UNKNOWN. TRAUMA: None. IMMUNIZATION: Up-to-date. HOSPITALIZATIONS: Please see past medical history. FAMILY HISTORY: No family history of ESRD. PHYSICAL EXAMINATION: VITAL SIGNS: Blood pressure is noted at 174/91, heart rate 79, respiratory rate 12, temperature 98.6, O2 saturation 97%. GENERAL: Awake, alert, comfortable, not in overt distress. SKIN: Adequate turgor. HEENT: He has a slightly pale conjunctivae. Anicteric sclerae. NECK: No neck mass. No carotid bruits. No JVD. CHEST: No deformities. LUNGS: Clear breath sounds. No wheezing. No crackles. HEART: Normal sinus rhythm. No murmurs, gallops, or rubs. ABDOMEN: Globular, soft, nontender. No masses. EXTREMITIES: No edema. No deformities. LABORATORY DATA: On March 21, 2020; white count 10.5, hemoglobin 10.1. Sodium 134, potassium 3.8, chloride 94, carbon dioxide 25, BUN 43, creatinine 9.33, calcium 8.6. On March 20, 2020, creatinine 14.65. ASSESSMENT AND PLAN: 1. End-stage renal disease/chronic renal failure. Continuing hemodialysis regimen. We will place this patient on a Tuesday, , and Tuesday hemodialysis. Referral for outpatient hemodialysis has been made. Case discussed with the nursing staff. 2. Hyperphosphatemia. Continuing Tums 500 mg one tablet t.i.d. with meals. 3. Anemia, on weekly Epogen. 4. Hypertension. I would suggest we start the patient on nifedipine at 30 mg XL tablet once a day. Job ID: [id number] [id number]
[2020-03-21 12:57] LABS: SARS-CoV-2 MS2 Positive; SARS-CoV-2 N Gene Negative; SARS-CoV-2 S Gene Negative; SARS-CoV-2 by NAA Not Detected (NotDetected); SARS-CoV-2 orf1ab Negative
--- NOTE | 2020-03-21 13:50 | PDOC.HOSPP ---
- Subjective Encounter Date: 03/21/20 Encounter Time: 11:00 Subjective: Patient seen and examined for volume overload due to lack of hemodialysis. Shortness of breath improving. Underwent hemodialysis yesterday evening. Denies any chest pain or palpitations. - Objective Vital Signs & Weight: Vital Signs (12 hours) Temp Pulse Resp BP BP Pulse Ox 03/21/20 12:00 98.1 F 76 18 128/85 98 03/21/20 09:10 75 03/21/20 08:24 97.8 F 75 18 129/85 97 03/21/20 04:00 98.6 F 79 12 174/91 H 97 Weight Weight 120 lb 14.4 oz Result Diagrams: 03/21/20 05:48 03/21/20 05:48 Additional Labs: Abnormal Lab Results - Last 48 hrs 03/20/20 12:09: B-Natriuretic Peptide 1165.9 H 03/20/20 12:18: Sodium 133 L, Chloride 89 L, Anion Gap 24 H, BUN 79 H, Creatinin e 14.65 H, Alkaline Phosphatase 111 H, Globulin 3.6 H 03/20/20 12:18: RBC 3.12 L, Hgb 9.8 L, Hct 30.2 L, MCH 31.6 H, Lymphocytes % 17.5 L, Monocytes # 0.7 H 03/21/20 05:48: Sodium 134 L, Chloride 94 L, BUN 43 H, Creatinine 9.33 H 03/21/20 05:48: RBC 3.16 L, Hgb 10.1 L, Hct 30.5 L, MCH 31.8 H, RDW 14.6 H, Lymphocytes % 17.0 L, Basophils % 1.1 H, Neutrophils # 7.4 H, Monocytes # 0.9 H Radiology Reviewed by me: Yes (Chest x-rayno new changes) Hospitalist ROS - Review of Systems Cardiovascular: denies: chest pain, palpitations, orthopnea, paroxysmal noc. dyspnea, edema, light headedness, other Gastrointestinal: denies: nausea, vomiting, abdominal pain, diarrhea, constipation, melena, hematochezia, other - Medication Medications: Active Medications Generic Name Dose Route Start Last Admin Trade Name Freq PRN Reason Stop Dose Admin Nifedipine 30 mg 03/21/20 09:00 03/21/20 09:10 Nifedipine Xl 30 Mg Tab PO 30 mg DAILY LV Administration - Exam General Appearance: NAD Heart: RRR, no gallops, no rubs, normal peripheral pulses Respiratory: no wheezes, no rales, no ronchi, normal chest expansion Gastrointestinal: soft, non-tender, non-distended, normal bowel sounds Extremities: no cyanosis, no clubbing, no edema Extremities - other findings: No calf tenderness Neurological: no new deficit Psychiatric: normal affect, A&O x 3 Hosp A/P - Plan DVT proph w/heparin, DVT proph w/SCDs 49-year-old male with end-stage renal disease on intermittent hemodialysis due to financial reason presents with worsening shortness of breath and uremic symptoms. Started on hemodialysis. Awaiting outpatient hemodialysis set up. #End-stage renal disease with volume overload due to missed hemodialysis Continue hemodialysis per nephrology. inside channel account manager consulted for outpatient h emodialysis set up. Patient is stable for discharge once outpatient hemodialysis set up is arranged. #Chronic anemia due to renal disease Continue Epogen with hemodialysis #Hypertension Continue Procardia XL 30 mg daily. Add PRN antihypertensives. #Secondary hyperparathyroidism Continue Tums 500 mg 3 times daily with meals #Discharge planningawait outpatient hemodialysis set up #DVT prophylaxis with subcu heparin
[2020-03-21] MEDS ORDERED: NIFEdipine XL 30 MG TAB PO PRN (13:51)
[2020-03-21] MEDS: Acetaminophen 325 MG TAB PO PRN (20:51)
[2020-03-22 04:47] LABS: #Basophils 0.1 thou/uL (0.0-0.2); #Eosinphils 0.5 thou/uL (0.0-0.7); #Lymphocytes 1.9 thou/uL (1.20-3.40); #Monocytes 0.8 thou/uL (0.11-0.59); #Neutrophils 3.8 thou/uL (1.40-6.50); %Basophils 1.5 % (0.0-1.0); %Eosinophils 6.8 % (0.0-10.0); %Lymphocytes 27.4 % (21.0-51.0); %Monocytes 11.2 % (0.0-10.0); %Neutrophils 53.1 % (42.0-75.0); Hemoglobin 9.6 g/dL (14.0-18.0); Mean Corpuscular HGB CONC 33.2 g/dL (32.0-36.0); Mean Corpuscular Hemoglobin 31.3 pg (27.0-31.0); Mean Corpuscular Volume 94.5 fL (78.0-98.0); Mean Platelet Volume 7.9 fL (7.4-10.4); Platelet Count 213 thou/uL (130-400); RBC Distribution Width 14.9 % (11.5-14.5); Red Blood Cell (RBC) Count 3.08 mill/uL (4.70-6.10); White Blood Cell (WBC) Count 7.1 thou/uL (4.8-10.8)
[2020-03-22 05:15] LABS: Anion Gap 21 mmol/L (10-20); BUN (Urea Nitrogen) 61 mg/dL (8.9-20.6); Calc. Creatinine Clearance 6 mL/min (70-130); Calcium 8.2 mg/dL (7.8-10.44); Carbon Dioxide 19 mmol/L (22-29); Chloride 94 mmol/L (98-107); Estimated GFR-MDRD 5; Glucose 81 mg/dL (70-105); Sodium 130 mmol/L (136-145)
[2020-03-22] MEDS: NIFEdipine XL 30 MG TAB PO SCH (08:59)
[2020-03-22] MEDS: Heparin 5,000 UNITS/ML VIAL SC SCH ×2 (08:59→20:48)
--- NOTE | 2020-03-22 10:33 | PRG ---
DATE OF SERVICE: 03/22/2020 SUBJECTIVE: Mr. Cm is a 49-year-old male, admitted for uremia and for hemodialysis. He is currently dialyzing today. We are awaiting outpatient dialysis placement for him. He voices no new complaints. Please note, we were able to use his AV fistula today. No complaints of chest pain or shortness of breath. OBJECTIVE: VITAL SIGNS: Blood pressure 162/93, heart rate 84, respiratory rate 14, temperature 97.7, O2 saturation is 99%. GENERAL: He is awake, alert, comfortable, not in distress. SKIN: Adequate turgor. HEENT: Slightly pale conjunctivae. Anicteric sclerae. NECK: No neck mass. No carotid bruits. No JVD. CHEST: No deformities. LUNGS: Clear breath sounds. HEART: Normal sinus rhythm. No murmur. No gallops. No rubs. ABDOMEN: Globular, soft, nontender. No masses. EXTREMITIES: No edema. No deformities. MEDICATIONS: Medications of March 22, 2020, was reviewed. LABORATORY DATA: Laboratories of March 22, 2020; white count 7.1, hemoglobin 9.6. Sodium 130, potassium 4, chloride 94, carbon dioxide 19, BUN 61, creatinine 10.83, glucose 81, calcium 8.2. White count 7.1, hemoglobin 9.6. ASSESSMENT AND PLAN: 1. Anemia. Start iron supplementation 325 mg b.i.d., Epogen 7500 units subcu q.week. 2. End-stage renal disease/chronic renal failure. Continue hemodialysis regimen 3 times a week. Fluid removal as tolerated. 3. Renal osteodystrophy-started on calcitriol and phosphate binders. 4. Recheck CBC, basic met, PTH, serum phosphorus in a.m. Job ID: [id number]
--- NOTE | 2020-03-22 14:08 | EKG ---
Test Reason : Blood Pressure : / mmHG Vent. Rate : 076 BPM Atrial Rate : 076 BPM P-R Int : 164 ms QRS Dur : 140 ms QT Int : 436 ms P-R-T Axes : 061 083 036 degrees QTc Int : 490 ms Normal sinus rhythm Possible Left atrial enlargement Right bundle branch block Abnormal ECG Confirmed by BROOKE HARP ([id number]), video editor DARIEL TEE ([id number]) on 03/22/2020 2:08:07 PM Referred By: Confirmed By:BROOKE Gomes
[2020-03-22] MEDS: Sevelamer Carbonate 800 MG TAB PO SCH ×2 (14:24→18:04)
--- NOTE | 2020-03-22 17:47 | PDOC.HOSPP ---
- Subjective Encounter Date: 03/22/20 Encounter Time: 10:45 Subjective: Patient seen and examined for volume overload due to missed hemodialysis. Shortness of breath improving. Undergoing hemodialysis. No chest pain or palpitations reported. - Objective Vital Signs & Weight: Vital Signs (12 hours) Temp Pulse Resp BP Pulse Ox 03/22/20 14:26 98.4 F 77 16 159/87 H 100 03/22/20 08:00 96.1 F L 65 16 139/81 97 Weight Weight 120 lb 14.4 oz I&O: 03/21/20 03/22/20 03/23/20 06:59 06:59 06:59 Intake Total 360 Balance 360 Result Diagrams: 03/22/20 04:04 03/22/20 04:04 Additional Labs: Abnormal Lab Results - Last 48 hrs 03/21/20 05:48: Sodium 134 L, Chloride 94 L, BUN 43 H, Creatinine 9.33 H 03/21/20 05:48: RBC 3.16 L, Hgb 10.1 L, Hct 30.5 L, MCH 31.8 H, RDW 14.6 H, Lymphocytes % 17.0 L, Basophils % 1.1 H, Neutrophils # 7.4 H, Monocytes # 0.9 H 03/22/20 04:04: Sodium 130 L, Chloride 94 L, Carbon Dioxide 19 L, Anion Gap 21 H, BUN 61 H, Creatinine 10.83 H 03/22/20 04:04: RBC 3.08 L, Hgb 9.6 L, Hct 29.1 L, MCH 31.3 H, RDW 14.9 H, Monocytes % 11.2 H, Basophils % 1.5 H, Monocytes # 0.8 H Hospitalist ROS - Review of Systems Cardiovascular: denies: chest pain, palpitations, orthopnea, paroxysmal noc. dyspnea, edema, light headedness, other Gastrointestinal: denies: nausea, vomiting, abdominal pain, diarrhea, constipation, melena, hematochezia, other - Medication Medications: Active Medications Generic Name Dose Route Start Last Admin Trade Name Freq PRN Reason Stop Dose Admin Acetaminophen 650 mg 03/21/20 20:40 03/21/20 20:51 Acetaminophen 325 Mg Tab PO 650 mg Q4H PRN Administration Headache/Fever or Pain Heparin Sodium (Porcine) 5,000 units 03/21/20 21:00 03/22/20 08:59 Heparin 5,000 Units/Ml Vial SC 5,000 units BID LV Administration Nifedipine 30 mg 03/21/20 09:00 03/22/20 08:59 Nifedipine Xl 30 Mg Tab PO 30 mg DAILY LV Administration Sevelamer Carbonate 1,600 mg 03/22/20 12:00 03/22/20 14:24 Sevelamer Carbonate 800 Mg Tab PO 1,600 mg TID-WM LV Administration - Exam General Appearance: NAD Heart: RRR, no gallops Respiratory: no wheezes, rhonchi Gastrointestinal: soft, non-distended, normal bowel sounds Extremities: no cyanosis, no clubbing Musculoskeletal: generalized weakness Hosp A/P - Plan DVT proph w/SCDs 49-year-old male with end-stage renal disease on intermittent hemodialysis due to financial reason presents with worsening shortness of breath and uremic symptoms. Started on hemodialysis. Awaiting outpatient hemodialysis set up. #End-stage renal disease with volume overload due to missed hemodialysis. Shortness of breath improving. Continue hemodialysis per nephrology. Patient is awaiting outpatient hemodialysis set up.. #Chronic anemia due to renal disease Continue Epogen with hemodialysis #Hypertension Continue Procardia XL 30 mg daily. Add PRN antihypertensives. #Secondary hyperparathyroidism Continue Tums 500 mg 3 times daily with meals #Discharge planningawait outpatient hemodialysis set up #DVT prophylaxis Continue heparin
[2020-03-22] MEDS ORDERED: NIFEdipine XL 30 MG TAB PO PRN (17:49)
[2020-03-22] MEDS: Ferrous Sulfate 325 MG TAB PO SCH (18:04)
[2020-03-22] MEDS: Acetaminophen 325 MG TAB PO PRN (20:48)
[2020-03-22] MEDS: Senokot S 8.6-50 MG TAB PO SCH (20:48)
[2020-03-23] MEDS: READ PPD TEST SITE PO SCH (00:51)
[2020-03-23 06:51] LABS: #Basophils 0.1 thou/uL (0.0-0.2); #Eosinphils 0.5 thou/uL (0.0-0.7); #Lymphocytes 2.2 thou/uL (1.20-3.40); #Monocytes 1.1 thou/uL (0.11-0.59); #Neutrophils 4.5 thou/uL (1.40-6.50); %Basophils 1.4 % (0.0-1.0); %Eosinophils 5.8 % (0.0-10.0); %Lymphocytes 25.8 % (21.0-51.0); %Monocytes 13.4 % (0.0-10.0); %Neutrophils 53.5 % (42.0-75.0); Hemoglobin 10.6 g/dL (14.0-18.0); Mean Corpuscular HGB CONC 34.1 g/dL (32.0-36.0); Mean Corpuscular Hemoglobin 31.8 pg (27.0-31.0); Mean Corpuscular Volume 93.5 fL (78.0-98.0); Mean Platelet Volume 7.3 fL (7.4-10.4); Platelet Count 217 thou/uL (130-400); Red Blood Cell (RBC) Count 3.33 mill/uL (4.70-6.10); White Blood Cell (WBC) Count 8.3 thou/uL (4.8-10.8)
[2020-03-23 07:14] LABS: Anion Gap 18 mmol/L (10-20); BUN (Urea Nitrogen) 39 mg/dL (8.9-20.6); Calc. Creatinine Clearance 10 mL/min (70-130); Calcium 8.9 mg/dL (7.8-10.44); Carbon Dioxide 27 mmol/L (22-29); Chloride 96 mmol/L (98-107); Estimated GFR-MDRD 8; Glucose 74 mg/dL (70-105); Phosphorus 4.5 mg/dL (2.3-4.7); Potassium 3.8 mmol/L (3.5-5.1); Sodium 137 mmol/L (136-145)
[2020-03-23] MEDS: NIFEdipine XL 30 MG TAB PO SCH (09:36)
[2020-03-23] MEDS: Heparin 5,000 UNITS/ML VIAL SC SCH ×2 (09:36→21:12)
[2020-03-23] MEDS: Ferrous Sulfate 325 MG TAB PO SCH ×2 (09:36→16:26)
[2020-03-23] MEDS: Sevelamer Carbonate 800 MG TAB PO SCH ×3 (09:36→18:31)
[2020-03-23] MEDS: Senokot S 8.6-50 MG TAB PO SCH ×2 (09:36→21:12)
[2020-03-23] MEDS: Calcitriol 0.25 MCG CAP PO SCH (10:39)
--- NOTE | 2020-03-23 14:07 | PDOC.HOSPP ---
- Subjective Encounter Date: 03/23/20 Encounter Time: 08:45 Subjective: Patient seen and examined for volume overload due to missed hemodialysis. Denies any new chest pain or shortness of breath. No fever or chills. - Objective Vital Signs & Weight: Vital Signs (12 hours) Temp Pulse Resp BP BP Pulse Ox 03/23/20 09:36 85 166/99 H 03/23/20 08:00 97.9 F 85 16 166/99 H 99 Weight Weight 120 lb 14.4 oz I&O: 03/22/20 03/23/20 03/24/20 06:59 06:59 06:59 Intake Total 360 360 Balance 360 360 Result Diagrams: 03/23/20 06:36 03/23/20 06:36 Hospitalist ROS - Review of Systems Cardiovascular: denies: chest pain, palpitations, orthopnea, paroxysmal noc. dyspnea, edema, light headedness, other Gastrointestinal: denies: nausea, vomiting, abdominal pain, diarrhea, constipation, melena, hematochezia, other - Medication Medications: Active Medications Generic Name Dose Route Start Last Admin Trade Name Freq PRN Reason Stop Dose Admin Acetaminophen 650 mg 03/21/20 20:40 03/22/20 20:48 Acetaminophen 325 Mg Tab PO 650 mg Q4H PRN Administration Headache/Fever or Pain Calcitriol 0.25 mcg 03/23/20 09:00 03/23/20 10:39 Calcitriol 0.25 Mcg Cap PO 0.25 mcg DAILY LV Administration Ferrous Sulfate 325 mg 03/22/20 17:00 03/23/20 09:36 Ferrous Sulfate 325 Mg Tab PO 325 mg BID-WM LV Administration Heparin Sodium (Porcine) 5,000 units 03/21/20 21:00 03/23/20 09:36 Heparin 5,000 Units/Ml Vial SC 5,000 units BID LV Administration Nifedipine 30 mg 03/21/20 09:00 03/23/20 09:36 Nifedipine Xl 30 Mg Tab PO 30 mg DAILY LV Administration Read Ppd Test Site 0 each 03/22/20 23:00 03/23/20 00:51 PO 03/23/20 23:01 1 each 2300 LV Administration Senna/Docusate Sodium 1 tab 03/22/20 21:00 03/23/20 09:36 Senokot S 8.6-50 Mg Tab PO 1 tab BID LV Administration Sevelamer Carbonate 1,600 mg 03/22/20 12:00 03/23/20 12:27 Sevelamer Carbonate 800 Mg Tab PO 1,600 mg TID-WM LV Administration - Exam General Appearance: NAD Heart: RRR, no gallops Respiratory: no wheezes, no ronchi Gastrointestinal: soft, non-tender, normal bowel sounds Extremities: no cyanosis Neurological: no new deficit Hosp A/P - Plan DVT proph w/SCDs 49-year-old male with end-stage renal disease on intermittent hemodialysis due to financial reason presents with worsening shortness of breath and uremic symptoms. Awaiting outpatient hemodialysis set up. End-stage renal disease with volume overload due to missed hemodialysis. Shortness of breath improving. Chronic anemia due to renal disease Hypertension Secondary hyperparathyroidism Plan: Continue hemodialysis per nephrology. Continue Procardia XL. 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 Continue PRN medications. Continue other medications as above. Counseled on renal diet
[2020-03-23] MEDS: Acetaminophen 325 MG TAB PO PRN (21:12)
[2020-03-24] MEDS: READ PPD TEST SITE PO SCH (00:04)
[2020-03-24 08:13] VITALS: BP 142/87; TEMP 97.8
--- NOTE | 2020-03-24 08:40 | PRG ---
DATE OF SERVICE: 03/24/2020 SUBJECTIVE: Mr. Cm is a 49-year-old male with chronic renal failure/ESRD, admitted for hemodialysis; he has missed several treatments due to inability to find an outpatient dialysis. However, we are currently working up this patient for a possible outpatient dialysis placement. No new complaints today. No chest pain or shortness of breath. OBJECTIVE: VITAL SIGNS: Blood pressure 142/87, heart rate 82, respiratory rate 18, temperature 97.8, and O2 saturation 98%. GENERAL: The patient is awake, alert, comfortable, and not in distress. SKIN: Adequate turgor. HEENT: He has pinkish conjunctivae and anicteric sclerae. NECK: No neck mass. No carotid bruits. No JVD. CHEST: No deformities. LUNGS: Clear breath sounds. HEART: Normal sinus rhythm. No murmur. No gallops. No rubs. ABDOMEN: Globular. Soft and nontender. No masses. EXTREMITIES: No edema. No deformities. MEDICATIONS: Of March 24, 2020, were reviewed. LABORATORIES: Of March 23, 2020: White count 8.3 and hemoglobin 10.6. Sodium 137, potassium 3.8, chloride 96, carbon dioxide 27, BUN 39, creatinine 7.14, and glucose 74. Calcium 8.9. PTH 322. ASSESSMENT AND PLAN: 1. Chronic renal failure/end-stage renal disease, continuing 3 times a week hemodialysis. I have scheduled him for hemodialysis tomorrow. Fluid removal as tolerated. 2. Anemia, on Epogen. 3. Secondary hyperparathyroidism, currently on calcitriol. 4. Hyperphosphatemia. Renvela has been initiated on this patient. Awaiting outpatient dialysis placement. Job ID: [id number]
[2020-03-24] MEDS: Sevelamer Carbonate 800 MG TAB PO SCH ×2 (10:15→12:00)
[2020-03-24] MEDS: Senokot S 8.6-50 MG TAB PO SCH (10:15)
[2020-03-24] MEDS: NIFEdipine XL 30 MG TAB PO SCH (10:16)
[2020-03-24] MEDS: Heparin 5,000 UNITS/ML VIAL SC SCH (10:16)
[2020-03-24] MEDS: Ferrous Sulfate 325 MG TAB PO SCH (10:16)
[2020-03-24] MEDS: Calcitriol 0.25 MCG CAP PO SCH (10:16)
--- NOTE | 2020-03-24 10:31 | PDOC.HOSPP ---
- Subjective Encounter Date: 03/24/20 Encounter Time: 09:45 Subjective: Patient was seen and examined for followup of ED presentation to receive hemodialysis. Patient stated he slept well other than his normal thigh cramps. Patient stated overall he is feeling ok. - Objective Vital Signs & Weight: Vital Signs (12 hours) Temp Pulse Resp BP Pulse Ox 03/24/20 10:16 82 03/24/20 08:00 97.8 F 82 18 142/87 H 98 Weight Weight 120 lb 14.4 oz I&O: 03/23/20 03/24/20 03/25/20 06:59 06:59 06:59 Intake Total 360 2940 Balance 360 2940 Result Diagrams: 03/23/20 06:36 03/23/20 06:36 Hospitalist ROS - Review of Systems Respiratory: denies: cough, shortness of breath Gastrointestinal: denies: vomiting, diarrhea, constipation Neurological: denies: weakness - Medication Medications: Active Medications Generic Name Dose Route Start Last Admin Trade Name Freq PRN Reason Stop Dose Admin Acetaminophen 650 mg 03/21/20 20:40 03/23/20 21:12 Acetaminophen 325 Mg Tab PO 650 mg Q4H PRN Administration Headache/Fever or Pain Calcitriol 0.25 mcg 03/23/20 09:00 03/24/20 10:16 Calcitriol 0.25 Mcg Cap PO 0.25 mcg DAILY LV Administration Ferrous Sulfate 325 mg 03/22/20 17:00 03/24/20 10:16 Ferrous Sulfate 325 Mg Tab PO 325 mg BID-WM LV Administration Heparin Sodium (Porcine) 5,000 units 03/21/20 21:00 03/24/20 10:16 Heparin 5,000 Units/Ml Vial SC 5,000 units BID LV Administration Nifedipine 30 mg 03/21/20 09:00 03/24/20 10:16 Nifedipine Xl 30 Mg Tab PO 30 mg DAILY LV Administration Senna/Docusate Sodium 1 tab 03/22/20 21:00 03/24/20 10:15 Senokot S 8.6-50 Mg Tab PO 1 tab BID LV Administration Sevelamer Carbonate 1,600 mg 03/22/20 12:00 03/24/20 10:15 Sevelamer Carbonate 800 Mg Tab PO 1,600 mg TID-WM LV Administration - Exam General Appearance: NAD Heart: RRR, no murmur, no gallops, no rubs Respiratory: CTAB, no wheezes, no rales Gastrointestinal: soft, normal bowel sounds, no guarding Extremities: no edema Psychiatric: normal affect, A&O x 3 Hosp A/P - Plan 1. End Stage Renal Disease with volume overload due to missed hemodialysis. 2. Anemia of Chronic Disease: due to renal disease 3.Hypertension 4. Secondary hyperparathyroidism Plan: -Continue patient on hemodialysis per nephrology. -Case management continue to look for outpatient hemodialysis opportunity for patient. -Continue patient on ferrous sulfate. -Continue patient on Epogen with hemodialysis. -Continue patient on Procardia XL 30 mg daily -Continue patient on Tums 500 mg TID with meals -Patients discharge planning: awaiting outpatient hemodialysis set-up -Continue patient on DVT prophylaxis
--- NOTE | 2020-03-28 10:48 | DIS ---
DATE OF ADMISSION: 03/21/2020 DATE OF DISCHARGE: 03/24/2020 PRIMARY CARE PROVIDER: [facility] Nina. DISCHARGE DIAGNOSES: 1. Volume overload. 2. Volume overload secondary to missed hemodialysis. 3. Hypertensive urgency. 4. Secondary hyperparathyroidism. CONDITION OF PATIENT ON THE DAY OF DISCHARGE: Stable. I assessed Mr. Cm on the day of discharge. Please refer to my daily hospitalist progress note for further details regarding this [id number] encounter. CONSULTATIONS DURING THIS HOSPITALIZATION: Nephrology, Dr. Coreas. HOSPITAL COURSE: Mr. Cm is a pleasant 49-year-old gentleman, who was admitted to [facility] on March 20, 2020, for volume overload secondary to missed hemodialysis. He was also in hypertensive urgency. He was seen by Nephrology Service and underwent dialysis, with improvement in symptoms. Case Management was involved in finding outpatient dialysis chair. He has been accepted at [place] [facility] for dialysis. DISCHARGE MEDICATIONS: 1. Ferrous sulfate 325 mg two times a day. 2. Procardia XL 30 mg daily. 3. Renvela 1600 mg three times a day. 4. Calcitriol 0.25 mcg daily. The patient has been advised to check his blood pressure and heart rate 3 times a day and show the readings to primary care provider. DIET: Renal and heart healthy. POST-ACUTE CARE FOLLOWUP: With primary care provider in 3 days. ACTIVITY: As tolerated. DISCHARGE DESTINATION: Home. TIME SPENT: Total amount of time spent coordinating this discharge: 32 minutes. Job ID: [id number]
== END 2020-03-24 15:41 | disposition home or self-care (01) | DRG 640 ==
LOC: ERS 10:53 → ONC 15:06 → OBSVTOIN 03-21 09:46
PROVIDERS: ADMIT Student in an Organized Health Care Education/Training Program; ATTEND Student in an Organized Health Care Education/Training Program
PROC: 5A1D70Z Performance of Urinary Filtration, Intermittent, Less than 6 Hours Per Day (ICD-10-PCS; principal; 2020-03-22)
DX: E87.70 Fluid overload, unspecified (principal); N18.6 End stage renal disease; I12.0 Hypertensive chronic kidney disease with stage 5 chronic kidney disease or end stage renal disease; N25.81 Secondary hyperparathyroidism of renal origin; I16.0 Hypertensive urgency; F32.9 Major depressive disorder, single episode, unspecified; D63.1 Anemia in chronic kidney disease; E83.39 Other disorders of phosphorus metabolism; Z99.2 Dependence on renal dialysis; Z91.040 Latex allergy status; N25.0 Renal osteodystrophy; Z20.828 Contact with and (suspected) exposure to other viral communicable diseases
CPT/HCPCS: 36415; 71045; 80048; 80053; 83880; 83970; 84100; 84484; 85025; 86580; 86704; 86706; 86803; 87340; 87635; 90935; 93005; G0257; G0378; J1644; J1885; Q5105; U0003

== ENCOUNTER 2021-01-27 06:35 | Emergency (ER) | payer MEDICAID, SELFPAY ==
[2021-01-27 08:24] LABS: SARS-CoV-2 NAA Rapid Test Not Detected (NotDetected)
== END 2021-01-27 10:24 | disposition home or self-care (01) ==
LOC: ERS 06:35
DX: B34.9 Viral infection, unspecified (principal); Z20.822 Contact with and (suspected) exposure to COVID-19; I12.0 Hypertensive chronic kidney disease with stage 5 chronic kidney disease or end stage renal disease; N18.6 End stage renal disease; Z99.2 Dependence on renal dialysis
CPT/HCPCS: 99283; U0002; U0005

== ENCOUNTER 2023-11-23 23:24 | Observation (INO) | payer BC ==
[2023-11-24 01:57] VITALS: BMI 18.9
[2023-11-24] MEDS ORDERED: cloNIDine 0.1 MG TAB PO PRN (02:35)
[2023-11-24] MEDS ORDERED: Albuterol 200 PUFF (6.7GM INHALER) INH PRN (02:35)
[2023-11-24] MEDS ORDERED: cefTRIAXone (ROCEPHIN) 1 GM VIAL ONE (04:09)
[2023-11-24] MEDS ORDERED: Sodium Chloride 0.9% 100 ML ONE (04:09)
[2023-11-24] MEDS: cefTRIAXone\\ROCEPHIN 1 GM in Sodium Chloride 0.9% 100 ML IVPB SCH (04:17)
[2023-11-24 04:57] LABS: #Basophils Less than 0.03 10x3/uL (0.0-0.2); #Eosinphils Less than 0.03 10x3/uL (0.0-0.7); %Basophils 0.1 % (0.0-1.0); %Eosinophils 0.3 % (0.0-10.0); %Lymphocytes 5.2 % (21.0-51.0); %Monocytes 6.2 % (0.0-10.0); %Neutrophils 87.8 % (42.0-75.0); Hematocrit 30.8 % (42.0-52.0); Hemoglobin 10.5 g/dL (14.0-18.0); Mean Corpuscular HGB CONC 34.1 g/dL (32.0-36.0); Mean Corpuscular Hemoglobin 33.3 pg (27.0-31.0); Mean Corpuscular Volume 97.8 fL (78.0-98.0); Mean Platelet Volume 10.2 fL (7.4-10.4); Platelet Count 139 10x3/uL (130-400); RBC Distribution Width 14.9 % (11.5-14.5); Red Blood Cell (RBC) Count 3.15 mill/uL (4.70-6.10)
[2023-11-24 06:23] LABS: Anion Gap 19 mmol/L (10-20); BUN (Urea Nitrogen) 41 mg/dL (8.4-25.7); Calc. Creatinine Clearance 6 mL/min (70-130); Calcium 8.7 mg/dL (7.8-10.44); Carbon Dioxide 23 mmol/L (22-29); Chloride 100 mmol/L (98-107); Estimated GFR 6; Glucose 80 mg/dL (70-105); Potassium 7.6 mmol/L (3.5-5.1); Sodium 134 mmol/L (136-145)
[2023-11-24] MEDS: Insulin Regular, Human 100 UNIT/ML 10 ML VIAL IVP SCH (06:30)
[2023-11-24] MEDS ORDERED: Insulin Regular, Human 100 UNIT/ML 10 ML VIAL ONE (06:39)
[2023-11-24] MEDS ORDERED: Sodium Bicarb 50 mEq/50 ML VIAL ONE (06:41)
[2023-11-24] MEDS ORDERED: Sodium Bicarb 50 mEq/50 ML VIAL IVP SCH (06:45)
[2023-11-24] MEDS: Dextrose 50% Abboject 50 ML SYRINGE SLOW IVP PRN (06:45)
[2023-11-24] MEDS: Calcium Gluc 4.6 MEQ/10 ML (100 MG/ML) SLOW IVP SCH (06:52)
[2023-11-24] MEDS ORDERED: Dextrose 50% Abboject 50 ML SYRINGE ONE (06:56)
[2023-11-24] MEDS: Heparin 5,000 UNITS/ML VIAL SC SCH (09:25)
[2023-11-24] MEDS ORDERED: Heparin 10,000 UNITS/ 10 ML VIAL ONE (10:52)
[2023-11-24] MEDS: Metoprolol Tartrate 25 MG TAB PO SCH (13:20)
[2023-11-24] MEDS: hydrALAZINE 25 MG TAB PO SCH (13:20)
[2023-11-24] MEDS: NIFEdipine XL 90 MG ER.TAB PO SCH (14:57)
[2023-11-24] MEDS: Pantoprazole DR 40 MG TAB PO SCH (14:57)
[2023-11-24 15:31] LABS: Anion Gap 16 mmol/L (10-20); BUN (Urea Nitrogen) 15 mg/dL (8.4-25.7); Calc. Creatinine Clearance 15 mL/min (70-130); Calcium 8.9 mg/dL (7.8-10.44); Carbon Dioxide 28 mmol/L (22-29); Chloride 96 mmol/L (98-107); Estimated GFR 18; Glucose 125 mg/dL (70-105); Potassium 4.5 mmol/L (3.5-5.1); Sodium 135 mmol/L (136-145)
[2023-11-24] MEDS: Azithromycin 500 MG in Sodium Chloride 0.9% 250 ML 250 ML IVPB SCH (21:22)
[2023-11-25 07:04] VITALS: BP 140/82; TEMP 97.8
[2023-11-25] MEDS: Acetaminophen 325 MG TAB PO PRN (07:17)
== END 2023-11-25 11:07 | disposition home or self-care (01) ==
LOC: INTOOBSV 11-24 01:07 → 2NO 11-24 01:07 → MSONC 11-24 19:25
PROVIDERS: ADMIT Internal Medicine; ATTEND Internal Medicine
DX: R06.02 Shortness of breath (principal); I13.11 Hypertensive heart and chronic kidney disease without heart failure, with stage 5 chronic kidney disease, or end stage renal disease; N18.6 End stage renal disease; I50.9 Heart failure, unspecified; K29.70 Gastritis, unspecified, without bleeding; D63.1 Anemia in chronic kidney disease; E87.5 Hyperkalemia; J18.9 Pneumonia, unspecified organism; I34.0 Nonrheumatic mitral (valve) insufficiency; Z99.2 Dependence on renal dialysis; Z91.040 Latex allergy status; Z79.51 Long term (current) use of inhaled steroids; Z79.899 Other long term (current) drug therapy
CPT/HCPCS: 36415; 36416; 71045; 80048; 85025; 93005; 93010; 96365; 96372; 96375; 96376; G0378; J0456; J0612; J0696; J1644; J3490; J7050; J7999